=== PATIENT | male | born 1960 | race Caucasian/White ===

== ENCOUNTER 2016-11-15 04:36 | Inpatient (IN) | payer MEDICARE, MEDICAID ==
[2016-11-15 04:36] VITALS: BMI 19.3
--- NOTE | 2016-11-15 05:31 | ED PDOC ---
HPI: Psych/Substance Abuse Time Seen by Provider: 11/15/16 04:58 Chief Complaint (Nursing): Anxiety Chief Complaint (Provider): crisis eval History Per: Patient History/Exam Limitations: no limitations Onset/Duration Of Symptoms: Days Current Symptoms Are (Timing): Still Present Additional Complaint(s): 56yo male with PMHx including cocaine abuse, bipolar disorder presents to the ED for crisis eval. Patient was recently removed from [facility] due to persistent drug abuse. Patient states he has been non-compliant with his medications due to sense of feeling overwhelmed. Further reports feeling very preoccupied and anxious. Denies auditory or visual hallucinations. Last cocaine use was 3 days ago. Denies any other medical complaints including fever, cough, shortness of breath, n/v/d, chest pain. Past Medical History Reviewed: Historical Data, Nursing Documentation, Vital Signs Vital Signs: Last Vital Signs Temp 98.2 F 11/15/16 04:47 Pulse 83 11/15/16 04:47 Resp 18 11/15/16 04:47 BP 141/85 11/15/16 04:47 Pulse Ox 100 11/15/16 04:47 - Medical History PMH: Anxiety, Bipolar Disorder, Depression, Schizophrenia Denies: Diabetes, Hepatitis, HIV, HTN, Chronic Kidney Disease, Seizures, Sexually Transmitted Disease Other PMH: cocaine abuse - Surgical History Surgical History: Appendectomy - Family History Family History: States: No Known Family Hx - Social History Current smoker - smoking cessation education provided: Yes Alcohol: Occasional Drugs: Cocaine - Immunization History Hx Tetanus Toxoid Vaccination: No Hx Influenza Vaccination: No Hx Pneumococcal Vaccination: No - Home Medications Home Medications: Ambulatory Orders Medication Instructions Recorded Aripiprazole [Abilify] 20 mg PO DAILY #30 tablet 01/09/16 Benztropine [Cogentin] 1 mg PO DAILY #30 tab 01/09/16 buPROPion SR [Wellbutrin SR 150 MG] 150 mg PO DAILY #30 tab 01/09/16 Divalproex [Depakote DR] 500 mg PO BID 11/15/16 - Allergies Allergies/Adverse Reactions: Allergies Allergy/AdvReac Type Severity Reaction Status Date / Time wheat Allergy DIARRHEA Verified 02/26/16 14:38 Review of Systems ROS Statement: Except As Marked, All Systems Reviewed And Found Negative Constitutional: Negative for: Fever Cardiovascular: Negative for: Chest Pain Respiratory: Negative for: Cough, Shortness of Breath Gastrointestinal: Negative for: Nausea, Vomiting, Diarrhea Psych: Positive for: Anxiety, Other (preoccupied and overwhelmed, no auditory or visual hallucinations ) Physical Exam - Reviewed Nursing Documentation Reviewed: Yes Vital Signs Reviewed: Yes - Physical Exam Appears: Positive for: Well, No Acute Distress Head Exam: Positive for: ATRAUMATIC, NORMAL INSPECTION, NORMOCEPHALIC Skin: Positive for: Normal Color, Warm, Dry Eye Exam: Positive for: Normal appearance, EOMI, PERRL ENT: Positive for: Normal ENT Inspection Neck: Positive for: Normal, Painless ROM, Supple Cardiovascular/Chest: Positive for: Regular Rate, Rhythm. Negative for: Murmur , Tachycardia Respiratory: Positive for: Normal Breath Sounds. Negative for: Wheezing, Respiratory Distress Gastrointestinal/Abdominal: Positive for: Normal Exam, Soft. Negative for: Tenderness Back: Positive for: Normal Inspection Extremity: Positive for: Normal ROM. Negative for: Deformity, Swelling Neurologic/Psych: Positive for: Alert, Oriented. Negative for: Motor/Sensory Deficits - Laboratory Results Result Diagrams: 11/15/16 06:20 11/15/16 06:20 - ECG O2 Sat by Pulse Oximetry: 100 Pulse Ox Interpretation: Normal (RA) Medical Decision Making Medical Decision Makin: Impression: 56yo male w/ anxiety in setting of known bipolar disorder and cocaine abuse Plan: crisis eval drug screen reassess 0555: Patient evaluated by crisis and will be admitted for further stabilization and treatment. Dx: bipolar depressed fair Patient is medically cleared for psychiatric admission Scribe Attestation: Documented by Libia Topete acting as a scribe for Colby Jaime MD. Provider Scribe Attestation: All medical record entries made by the Scribe were at my direction and personally dictated by me. I have reviewed the chart and agree that the record accurately reflects my personal performance of the history, physical exam, medical decision making, and the department course for this patient. I have also personally directed, reviewed, and agree with the discharge instructions and disposition. Disposition - Clinical Impression Clinical Impression: Bipolar depression - Patient ED Disposition Is Patient to be Admitted: Yes - Disposition Disposition Time: 05:55 Condition: FAIR - Pt Status Changed To: Hospital Disposition Of: Inpatient - Admit Certification Admit to Inpatient:: After my assessment, the patient will require hospitalization for at least two midnights. This is because of the severity of symptoms shown, intensity of services needed, and/or the medical risk in this patient being treated as an outpatient.
[2016-11-15 06:18] LABS: RBC URINE < 1 /hpf (0-3); URINE BILIRUBIN NEGATIVE (NEGATIVE); URINE BLOOD NEGATIVE (NEGATIVE); URINE COLOR YELLOW (YELLOW); URINE GLUCOSE (UA) NEG (Normal); URINE KETONE NEGATIVE (NEGATIVE); URINE LEUKOCYTE ESTERASE NEG Leu/uL (Negative); URINE PROTEIN NEGATIVE (NEGATIVE); URINE UROBILINOGEN 0.2-1.0 mg/dL (0.2-1.0); WBC URINE < 1 /hpf (0-5)
[2016-11-15 06:24] LABS: BASO # 0.1 K/uL (0.0-0.2); BASO % 0.9 % (0.0-2.0); EOS # 0.3 K/uL (0.0-0.7); EOS % 3.7 % (0.0-4.0); LYMPH # 2.5 K/uL (1.0-4.3); LYMPH % 33.8 % (20.0-40.0); MEAN CELL VOLUME 85.8 fl (80.0-94.0); MEAN CORPUSCULAR HEMOGLOBIN 28.2 pg (27.0-31.0); MEAN CORPUSCULAR HGB CONC 32.9 g/dL (33.0-37.0); MEAN PLATELET VOLUME 8.2 fl (7.2-11.7); MONO # 0.6 K/uL (0.0-0.8); MONO % 7.6 % (0.0-10.0); RED CELL DISTRIBUTION WIDTH 13.2 % (11.5-14.5); WHITE BLOOD COUNT 7.4 K/uL (4.8-10.8)
[2016-11-15 06:49] LABS: ALB/GLOB RATIO 1.4 (1.0-2.1); ALCOHOL SERUM < 10 mg/dl (0-10); ALKALINE PHOSPHATASE 74 U/L (38-126); ALT/SGPT 34 U/L (21-72); AST/SGOT 24 U/L (17-59); BILIRUBIN,TOTAL 1.3 mg/dl (0.2-1.3); BLOOD UREA NITROGEN 11 mg/dl (9-20); CALCIUM 9.5 mg/dL (8.4-10.2); CARBON DIOXIDE 27 mmol/L (22-30); CHLORIDE 102 mmol/L (98-107); GFR AFRICAN-AMERICAN > 60; GLUCOSE,RANDOM 92 mg/dL (75-110); POTASSIUM 4.1 MMOL/L (3.6-5.0); SODIUM 141 mmol/l (132-148); TOTAL PROTEIN 7.5 G/DL (6.3-8.2)
--- NOTE | 2016-11-15 08:52 | CARD ---
APPROVED REPORT EKG Measurement Heart [id number] <Conclusion> Sinus bradycardia with short OH Minimal voltage criteria for LVH, may be normal variant Borderline ECG
--- NOTE | 2016-11-15 09:46 | RAD ---
HISTORY: admit COMPARISON: 01/03/2016 TECHNIQUE: Chest PA and lateral FINDINGS: LUNGS: No active pulmonary disease. PLEURA: No significant pleural effusion identified. No pneumothorax apparent. CARDIOVASCULAR: Normal. OSSEOUS STRUCTURES: Minor multilevel degenerative spondylosis of the thoracic spine. VISUALIZED UPPER ABDOMEN: Normal. OTHER FINDINGS: None. IMPRESSION: No active disease.
[2016-11-15] MEDS ORDERED: Magnesium Hydroxide Susp 30 ml UD PO PRN (11:57)
[2016-11-15] MEDS ORDERED: DiphenhydrAMINE 50 mg/ml Inj IM PRN (11:57)
[2016-11-15] MEDS ORDERED: Alum-Mag Hydrox-Simethicone Susp (30 mL) PO PRN (11:57)
[2016-11-15 12:36] LABS: CHOLESTEROL 139 mg/dL (0-199)
--- NOTE | 2016-11-15 12:55 | PCM.PSYCH ---
Initial Psychiatric Evaluation - Initial Psychiatric Evaluation Type of Admission: Voluntary Legal Status: Capacity Chief Complaint (in patient's own words): i am off my meds Patient's Reaction to Hospitalization: cooperative History of Present Illness and Precipitating Events: 56 yo male with history of mdd and cocaine dependence. he has been terminated from his program because of testing positive for cocaine. he has not had follow up treatment and has stopped taking his medications. he states his anxiety level has now gone "out of control" and reports he needs to go back on his medications. the final tipping point was receiving a letter for jury duty which made him feel that he would "be arrested if i don't go." he reports that his thoughts are racing, he cannot sleep, he has lost weight and that he has passive suicidal thoughts. denies psychotic symptoms. pt states he was sober from august after leaving his program until just recently. he does not want to use cocaine anymore. he is worried that he may lose his housing if it is found out he used cocaine. Current Medications: Active Medications Generic Name Dose Route Start Last Admin Trade Name Freq PRN Reason Stop Dose Admin Acetaminophen 650 mg 11/15/16 11:57 Tylenol 325mg Tab PO Q4 PRN Pain, moderate (4-7) Al Hydrox/Mg Hydrox/Simethicone 30 ml 11/15/16 11:57 Maalox Plus 30 Ml PO Q4 PRN Dyspepsia Benztropine Mesylate 1 mg 11/15/16 12:00 Cogentin PO DAILY ERIK Bupropion HCl 150 mg 11/15/16 12:00 Wellbutrin Sr 150 Mg PO DAILY ERIK Diphenhydramine HCl 50 mg 11/15/16 11:57 Benadryl IM Q6 PRN Extrapyramidal S/S Unable PO Diphenhydramine HCl 50 mg 11/15/16 11:57 Benadryl PO Q6 PRN Extrapyramidal Symptoms Divalproex Sodium 500 mg 11/15/16 17:00 Anastacio Cisneros(*Bid*) PO BID ERIK Haloperidol 5 mg 11/15/16 11:57 Haldol PO Q4 PRN Agitation Haloperidol Lactate 5 mg 11/15/16 11:57 Haldol IM Q4 PRN Agitation, Unable to Take PO Home Med 20 mg 11/15/16 12:00 Aripiprazole [Abilify] PO DAILY ERIK Lorazepam 2 mg 11/15/16 11:57 Ativan IM Q4 PRN Anxiety/Agitation,Unable PO Lorazepam 2 mg 11/15/16 11:57 Ativan PO Q4 PRN Anxiety/Agitation Magnesium Hydroxide 30 ml 11/15/16 11:57 Milk Of Magnesia PO HS PRN Constipation Past Psychiatric History - Past Psychiatric History Previous Treatment History: Inpatient Prior Psychiatric Treatment: was at [facility], [facility]: inpt at [facility] History of Abuse: denies History of ETOH/Drug Use: used crack cocaine once in recent months, denies use of alcohol or other substances. states he smokes a few cigarettes a day History of Family Illness: denies Pertinent Medical Hx (Current Medical&Sleep Prob, Allergies): Allergies Allergy/AdvReac Type Severity Reaction Status Date / Time wheat Allergy DIARRHEA Verified 02/26/16 14:38 Aripiprazole [Abilify] 20 mg PO DAILY #30 tablet 01/09/16 Benztropine [Cogentin] 1 mg PO DAILY #30 tab 01/09/16 buPROPion SR [Wellbutrin SR 150 MG] 150 mg PO DAILY #30 tab 01/09/16 Divalproex [Depakote DR] 500 mg PO BID 11/15/16 Review of Systems - Psychiatric Psychiatric: As Per HPI Mental Status Examination - Personal Presentation Personal Presentation: Looks stated age - Affect Affect: Constricted - Motor Activity Motor Activity: Calm - Reliability in Providing Information Reliability in Providing Information: Good - Speech Speech: Organized - Mood Mood: Depressed, Anxious - Formal Thought Process Formal Thought Process: No Impairment - Obsessions/Compulsions Obsessions: No Compulsions: No - Cognitive Functions Orientation: Person, Place, Situation, Time Sensorium: Alert Attention/Concentration: Attentive Abstract Thinking: Hardy Estimate of Intelligence: Average Judgement: Intact, as evidence by: Insight regarding need for hospitalization Memory: Recent intact, as evidence by: Ability to recall events of the day, Remote intact, as evidenced by: Abilit to recall sig. life events - Risk Risk: Suicidal (denies current thoughts), Diminished functioning - Strength & Assets Inventory Strength & Assets Inventory: Intelligence, Other DSM 5 DX - DSM 5 DSM 5 Diagnosis: major depression recurrent moderate panic disorder cocaine dependence - Recommended/Plan of Treatment Treatment Recommendations and Plan of Treatment: admit to [facility] for safety and observation gather collateral information provide supportive therapy adjust medications- will restart pt's home medications disposition planing- try to refer back to [facility] and php hospitalist consult Projected ELOS: 5-7 days Prognosis: fair - Smoking Cessation Smoking Cessation Initiated: No Reason for not providing: declines
[2016-11-15] MEDS: buPROPion SR 150 MG TABLET PO SCH (15:00)
[2016-11-15 16:31] VITALS: O2SAT 99
[2016-11-15] MEDS ORDERED: Divalproex 250 mg DR(BID formulation) PO SCH (17:00)
--- NOTE | 2016-11-15 19:59 | CP.PCM.HP ---
History of Present Illness - History of Present Illness History of Present Illness: 55 year old male with a history of Gluten intolerance/possibly celiac disease as per patient, polysubstance abuse ( cocaine, 3 days ago), depression, anxiety and Bipolar dx admitted to psychiatry for management of acute decompensation of his condition. Patient was recently removed from [facility] due to persistent drug abuse. Patient states he has been non-compliant with his medications due to sense of feeling overwhelmed. Further reports feeling very preoccupied and anxious. Denies auditory or visual hallucinations. Last cocaine use was 3 days ago Currently denies nausea, vomiting, diarrhea, hematochezia, hematemesis, fever, chills, chest pain, palpitations, shortness of breath, changes in exercise tolerance, focal deficits, parasthesias, blurry vision, syncope. Present on Admission - Present on Admission Any Indicators Present on Admission: No Review of Systems - Review of Systems Review of Systems: see hpi Past Patient History - Past Medical History & Family History Past Medical History?: Yes - Past Social History Alcohol: Occasional Drugs: Cocaine - CARDIAC Hx Cardiac Disorders: No Hx Hypertension: No - PULMONARY Hx Tuberculosis: No - NEUROLOGICAL HX Cerebrovascular Accident: No Hx Seizures: No - HEENT Hx HEENT Problems: No - RENAL Hx Chronic Kidney Disease: No - ENDOCRINE/METABOLIC Hx Endocrine Disorders: No - HEMATOLOGICAL/ONCOLOGICAL Hx Cancer: No Hx Human Immunodeficiency Virus (HIV): No - INTEGUMENTARY Hx Dermatological Problems: No - MUSCULOSKELETAL/RHEUMATOLOGICAL Hx Musculoskeletal Disorders: No - GASTROINTESTINAL Other/Comment: celiac disease - GENITOURINARY/GYNECOLOGICAL Hx Sexually Transmitted Disorders: No - PSYCHIATRIC Hx Anxiety: Yes Hx Depression: Yes Hx Substance Use: Yes - SURGICAL HISTORY Hx Appendectomy: Yes - ANESTHESIA Hx Anesthesia: Yes Hx Anesthesia Reactions: No Meds Allergies/Adverse Reactions: Allergies Allergy/AdvReac Type Severity Reaction Status Date / Time wheat Allergy DIARRHEA Verified 02/26/16 14:38 Physical Exam - Constitutional Appears: No Acute Distress - Head Exam Head Exam: ATRAUMATIC - Eye Exam Eye Exam: EOMI Pupil Exam: PERRL - ENT Exam ENT Exam: Mucous Membranes Moist - Respiratory Exam Respiratory Exam: Clear to Auscultation Bilateral. absent: Rales, Rhonchi - Cardiovascular Exam Cardiovascular Exam: +S1, +S2 - GI/Abdominal Exam GI & Abdominal Exam: Normal Bowel Sounds, Soft. absent: Tenderness - Extremities Exam Extremities exam: Positive for: pedal pulses present. Negative for: calf tenderness - Neurological Exam Neurological exam: Alert, Oriented x3 - Psychiatric Exam Psychiatric exam: Anxious, Depressed - Skin Skin Exam: Normal Color, Warm Results - Vital Signs Recent Vital Signs: Last Vital Signs Temp 97.3 F L 11/15/16 16:29 Pulse 55 L 11/15/16 16:29 Resp 18 11/15/16 16:29 BP 133/79 11/15/16 16:29 Pulse Ox 99 11/15/16 16:29 - Labs Result Diagrams: 11/15/16 06:20 11/15/16 06:20 Labs: Laboratory Results - last 24 hr 11/15/16 11/15/16 11/15/16 06:13 06:20 06:20 WBC 7.4 RBC 5.37 Hgb 15.1 Hct 46.0 MCV 85.8 MCH 28.2 MCHC 32.9 L RDW 13.2 Plt Count 223 MPV 8.2 Neut % (Auto) 54.0 Lymph % (Auto) 33.8 Cooper % (Auto) 7.6 Eos % (Auto) 3.7 Baso % (Auto) 0.9 Neut # 4.0 Lymph # 2.5 Cooper # 0.6 Eos # 0.3 Baso # 0.1 Sodium 141 Potassium 4.1 Chloride 102 Carbon Dioxide 27 Anion Gap 16 BUN 11 Creatinine 0.9 Est GFR ( Amer) > 60 Est GFR (Non-Af Amer) > 60 Random Glucose 92 Hemoglobin A1c Calcium 9.5 Total Bilirubin 1.3 AST 24 ALT 34 Alkaline Phosphatase 74 Total Protein 7.5 Albumin 4.3 Globulin 3.2 Albumin/Globulin Ratio 1.4 Triglycerides Cholesterol LDL Cholesterol Direct HDL Cholesterol Urine Color Yellow Urine Clarity Clear Urine pH 6.0 Ur Specific [place] 1.011 Urine Protein Negative Urine Glucose (UA) Neg Urine Ketones Negative Urine Blood Negative Urine Nitrate Negative Urine Bilirubin Negative Urine Urobilinogen 0.2-1.0 Ur Leukocyte Esterase Neg Urine RBC (Auto) < 1 Urine Microscopic WBC < 1 Alcohol, Quantitative < 10 11/15/16 11/15/16 12:03 12:03 WBC RBC Hgb Hct MCV MCH MCHC RDW Plt Count MPV Neut % (Auto) Lymph % (Auto) Cooper % (Auto) Eos % (Auto) Baso % (Auto) Neut # Lymph # Cooper # Eos # Baso # Sodium Potassium Chloride Carbon Dioxide Anion Gap BUN Creatinine Est GFR ( Amer) Est GFR (Non-Af Amer) Random Glucose Hemoglobin A1c 5.1 Calcium Total Bilirubin AST ALT Alkaline Phosphatase Total Protein Albumin Globulin Albumin/Globulin Ratio Triglycerides 85 Cholesterol 139 LDL Cholesterol Direct 87 HDL Cholesterol 31 Urine Color Urine Clarity Urine pH Ur Specific [place] Urine Protein Urine Glucose (UA) Urine Ketones Urine Blood Urine Nitrate Urine Bilirubin Urine Urobilinogen Ur Leukocyte Esterase Urine RBC (Auto) Urine Microscopic WBC Alcohol, Quantitative Assessment & Plan - Assessment and Plan (Free Text) Plan: 55 year old male with a history of Gluten intolerance/possibly celiac disease as per patient, polysubstance abuse ( cocaine, 3 days ago), depression, anxiety and Bipolar dx admitted to psychiatry for management of acute decompensation of his condition. Psych disorder and polysubstance abuse management as per psychiatry Gluten intolerance Gluten free diet PPx DVT - ambulate ad gracie
[2016-11-16 09:02] LABS: CHOLESTEROL 134 mg/dL (0-199)
[2016-11-16] MEDS: buPROPion SR 150 MG TABLET PO SCH (09:09)
[2016-11-16] MEDS: Divalproex 500 mg DR(BID formulation) PO SCH ×2 (09:09→17:03)
--- NOTE | 2016-11-16 09:47 | PCM.PYCHPN ---
Psychiatric Progress Note - Psychiatric Progress Note Patient seen today, length of contact: pt is seen and evaluated Patient Chief Complaint: pt is still feeling depressed and also angry for doing cocaine .pt is focussed on getting off cocaine .denies side effects to meds pt is doing better on abilify and wellbutrin DSM 5 Symptoms Update: major depresion Medication Change: No Medical Record Reviewed: Yes Mental Status Examination - Cognitive Function Orientation: Person, Place, Situation, Time Memory: Intact Attention: Poor Concentration: Poor Association: WNL Fund of Knowledge: WNL - Mood Mood: Depressed, Anxious - Affect Affect: Constricted - Formal Thought Process Formal Thought Process: No Impairment - Suicidal Ideation Suicidal Ideation: No - Homicidal Ideation Homicidal Ideation: No Goal/Treatment Plan - Goal/Treatment Plan Progress Toward Problem(s) and Goals/Treatment Plan: will continue the meds and adjust the meds and engage pt in therapy and groups.will refer pt for drugrehab
[2016-11-17 08:26] LABS: CHOLESTEROL 125 mg/dL (0-199)
[2016-11-17] MEDS: Divalproex 500 mg DR(BID formulation) PO SCH ×2 (08:45→18:15)
[2016-11-17] MEDS: buPROPion SR 150 MG TABLET PO SCH (08:45)
--- NOTE | 2016-11-17 15:26 | PCM.PYCHPN ---
Psychiatric Progress Note - Psychiatric Progress Note Patient seen today, length of contact: pt is seen and evaluated Patient Chief Complaint: pt is still feeling depressed and also angry for doing cocaine .pt is focussed on getting off cocaine .denies side effects to meds pt is doing better on abilify and wellbutrin pt is still worried about if placed in rehab as he does not want to go to rehab and rather go outpt DSM 5 Symptoms Update: major depression and cocaine dependence Medication Change: No Medical Record Reviewed: Yes Mental Status Examination - Cognitive Function Orientation: Person, Place, Situation, Time Memory: Intact Attention: Poor Concentration: Poor Association: WNL Fund of Knowledge: WNL - Mood Mood: Depressed, Anxious - Affect Affect: Constricted - Formal Thought Process Formal Thought Process: No Impairment - Suicidal Ideation Suicidal Ideation: No - Homicidal Ideation Homicidal Ideation: No Goal/Treatment Plan - Goal/Treatment Plan Progress Toward Problem(s) and Goals/Treatment Plan: will continue the meds and adjust the meds and engage pt in therapy and groups.will refer pt for drugrehab will check VPA level in am to adjust meds as needed.
[2016-11-18] MEDS: buPROPion SR 150 MG TABLET PO SCH (09:51)
[2016-11-18] MEDS: Divalproex 500 mg DR(BID formulation) PO SCH ×2 (09:51→16:54)
[2016-11-18 09:58] VITALS: RESP 18
--- NOTE | 2016-11-18 11:53 | PCM.PYCHPN ---
Psychiatric Progress Note - Psychiatric Progress Note Patient seen today, length of contact: discussed with team Patient Chief Complaint: i feel much better Problems Identified/Issues Discussed: pt worried about losing his housing. pt is denying suicidal thoughts currently. states he feels better now that he is on his medications. Medication Change: No Medical Record Reviewed: Yes Mental Status Examination - Cognitive Function Orientation: Person, Place, Situation, Time Memory: Intact Attention: WNL Concentration: WNL Association: WNL Fund of Knowledge: [facility] Decription of patient's judgement and insights: fair - Mood Mood: Depressed, Anxious - Affect Affect: Constricted - Speech Speech: Appropriate - Formal Thought Process Formal Thought Process: No Impairment - Suicidal Ideation Suicidal Ideation: No - Homicidal Ideation Homicidal Ideation: No Goal/Treatment Plan - Goal/Treatment Plan Need for Continued Stay: Remain at risks for inpatient hospitalization, Discharge may exacerbated symptoms Progress Toward Problem(s) and Goals/Treatment Plan: cocaine depenendence panic disorder, major depression continue current treatment referring to substance abuse treatment Estimated Date of D/C: 11/22/16
[2016-11-19] MEDS: Divalproex 500 mg DR(BID formulation) PO SCH ×2 (08:56→17:18)
[2016-11-19] MEDS: buPROPion SR 150 MG TABLET PO SCH (08:56)
--- NOTE | 2016-11-19 10:08 | PCM.PYCHPN ---
Psychiatric Progress Note - Psychiatric Progress Note Patient seen today, length of contact: discussed with team Patient Chief Complaint: i am doing better Problems Identified/Issues Discussed: pt states he is feeling better. no longer interested in inpatient treatment for his cocaine dependence. he is without aggression or agitation. pt denies suicidal thoughts. Medication Change: No Medical Record Reviewed: Yes Mental Status Examination - Cognitive Function Orientation: Person, Place, Situation, Time Memory: Intact Attention: WNL Concentration: WNL Association: WNL Fund of Knowledge: [facility] Decription of patient's judgement and insights: fair - Mood Mood: Depressed, Anxious - Affect Affect: Constricted - Speech Speech: Appropriate - Formal Thought Process Formal Thought Process: No Impairment Psychotic Thoughts and Behaviors: denies a/v hallucinations - Suicidal Ideation Suicidal Ideation: No - Homicidal Ideation Homicidal Ideation: No Goal/Treatment Plan - Goal/Treatment Plan Need for Continued Stay: Remain at risks for inpatient hospitalization, Discharge may exacerbated symptoms Progress Toward Problem(s) and Goals/Treatment Plan: cocaine depenendence panic disorder, major depression continue current treatment referring to substance abuse treatment- outpatient Estimated Date of D/C: 11/22/16
[2016-11-20] MEDS: Divalproex 500 mg DR(BID formulation) PO SCH (08:34)
[2016-11-20] MEDS: buPROPion SR 150 MG TABLET PO SCH (08:35)
[2016-11-20 08:58] VITALS: BP 121/86; PULSE 62; TEMP 96.5
--- NOTE | 2016-11-20 09:43 | PCM.PYCHDC ---
Mental Status Examination - Mental Status Examination Orientation: Person, Place, Situation, Time Memory: Intact Mood: Neutral Affect: Broad Speech: Appropriate Attention: WNL Concentration: WNL Association: WNL Fund of Knowledge: WNL Formal Thought Process: No Impairment Description of patient's judgement and insight: fair Psychotic Thoughts and Behaviors: denies a/v hallucinations Suicidal Ideation: No Current Homicidal Ideation?: No Plan: pt denies any suicidal or homicidal thoughts/plans or intent Discharge Summary - Discharge Note Reason for Hospitalization: pt ran out of meds after being terminated from program for cocaine use. Psychiatric History (includes Medical, Family, Personal Hx): history of bipolar disorder, cocaine dependence Laboratory Data: valproic acid level is 60.9 Consultations:: List each consultation separately and include: 1. Reason for request. 2. Findings. 3. Follow-up Consultations: seen by hospitalist Summary of Hospital Course include:: 1. Description of specific treatment plan utilized for patients during their course of treatmen. 2. Summarize the time- course for resolution of acute symptoms and/or regressed behaviors. 3. Describe issues identified and worked on during hospitalization. 4. Describe medication utilized. 5. Describe medical problems identified and treated. 6. Reassessment of suicide risk Summary of Hospital Course: 56 yo male with history of mdd and cocaine dependence. he has been terminated from his program because of testing positive for cocaine. he has not had follow up treatment and has stopped taking his medications. he states his anxiety level has now gone "out of control" and reports he needs to go back on his medications. the final tipping point was receiving a letter for jury duty which made him feel that he would "be arrested if i don't go." he reports that his thoughts are racing, he cannot sleep, he has lost weight and that he has passive suicidal thoughts. denies psychotic symptoms. pt states he was sober from august after leaving his program until just recently. he does not want to use cocaine anymore. he is worried that he may lose his housing if it is found out he used cocaine. hospital course: pt was admitted to [facility] and oriented to the unit. pt placed on routine safety protocols. pt was started back on his home medications. his old outpt program was consulted and would not take the pt back unless he was in an inpt rehab program. pt did not want to go to inpt rehab. he denied medication side effects he was socializing with peers and attending groups. he was denying any suicidal or homicidal thoughts at the time of discharge. he was agreeing to attend a [facility] program after discharge and was hoping the program would test his urine for cocaine as he felt this was helpful in keeping him sober. - Final Diagnosis (DSM 5) Condition upon Discharge: FAIR DSM 5: cocaine dependence bipolar disorder Disposition: HOME/ ROUTINE Follow-up Treatment Plan: follow up with aftercare appointments as directed take medications as prescribed do not use alcohol, tobacco or other illicit substances call 911 if any suicidal or homicidal thoughts Prescriptions/Medication Reconciliation: Aripiprazole [Abilify] 20 mg PO DAILY #30 tablet Benztropine [Cogentin] 1 mg PO DAILY #30 tab buPROPion SR [Wellbutrin SR 150 MG] 150 mg PO DAILY #30 tab Divalproex [Depakote DR(*BID*)] 500 mg PO BID #60 tcp - Smoking Cessation Smoking Cessation Medication prescribed: No Reason for not providing: declined - Antipsychotic Medications Pt discharged on 2 or more routine antipsychotic medications: No
== END 2016-11-20 12:25 | disposition home or self-care (01) | DRG 885 ==
LOC: H.ER 04:36 → H.ERHOLD 05:51 → H.PSYCH 08:31
PROVIDERS: ADMIT Psychiatry & Neurology Psychiatry; ATTEND Psychiatry & Neurology Psychiatry
PROC: GZHZZZZ Group Psychotherapy (ICD-10-PCS; principal; 2016-11-15)
PROC: GZ51ZZZ Individual Psychotherapy, Behavioral (ICD-10-PCS; 2016-11-15)
DX: F33.1 Major depressive disorder, recurrent, moderate (principal); F14.20 Cocaine dependence, uncomplicated; F31.30 Bipolar disorder, current episode depressed, mild or moderate severity, unspecified; Z91.14 Patient's other noncompliance with medication regimen; K90.41 Non-celiac gluten sensitivity; K90.0 Celiac disease; F41.0 Panic disorder [episodic paroxysmal anxiety]; Z90.49 Acquired absence of other specified parts of digestive tract; F17.200 Nicotine dependence, unspecified, uncomplicated

== ENCOUNTER 2017-04-17 11:25 | Inpatient (IN) | payer MEDICARE, MEDICAID ==
[2017-04-17 11:26] VITALS: BMI 19.3
[2017-04-17 11:32] VITALS: O2SAT 100
--- NOTE | 2017-04-17 11:57 | ED PDOC ---
HPI: Psych/Substance Abuse Time Seen by Provider: 04/17/17 11:50 Chief Complaint (Nursing): Psychiatric Evaluation Additional Complaint(s): Patient is a 57 y/o M with hx of schizophrenia and bipolar disorder, non- compliant with medication, with hx of polysubstance abuse, presenting with suicidal ideation. Patient denies plan. Denies homicidal ideation, visual or auditory hallucinations. He reports that he last used cocaine 10 hours ago. Denies somatic complaints. Denies fever, chills, chest pain, shortness of breath, Past Medical History Vital Signs: Last Vital Signs Temp 97.6 F 04/17/17 11:46 Pulse 52 L 04/17/17 11:46 Resp 14 04/17/17 11:46 BP 123/75 04/17/17 11:46 Pulse Ox 100 04/17/17 11:46 - Medical History PMH: Anxiety, Bipolar Disorder, Depression, Schizophrenia Denies: Diabetes, Hepatitis, HIV, HTN, Chronic Kidney Disease, Seizures, Sexually Transmitted Disease - Surgical History Surgical History: Appendectomy - Family History Family History: States: Unknown Family Hx - Immunization History Hx Tetanus Toxoid Vaccination: No Hx Influenza Vaccination: No Hx Pneumococcal Vaccination: No - Home Medications Home Medications: Ambulatory Orders Medication Instructions Recorded Aripiprazole [Abilify] 20 mg PO DAILY #30 tablet 11/20/16 Benztropine [Cogentin] 1 mg PO DAILY #30 tab 11/20/16 Divalproex [Depakote DR(*BID*)] 500 mg PO BID #60 tcp 11/20/16 buPROPion SR [Wellbutrin SR 150 MG] 150 mg PO DAILY #30 tab 11/20/16 - Allergies Allergies/Adverse Reactions: Allergies Allergy/AdvReac Type Severity Reaction Status Date / Time No Known Allergies Allergy Verified 04/17/17 15:44 Review of Systems Constitutional: Negative for: Fever, Chills Cardiovascular: Negative for: Chest Pain Respiratory: Negative for: Cough, Shortness of Breath, SOB with Exertion, Pleuritic Pain, Wheezing Gastrointestinal: Negative for: Nausea, Vomiting, Abdominal Pain, Diarrhea, Constipation Genitourinary Male: Negative for: Dysuria Skin: Negative for: Rash Neurological: Negative for: Weakness, Numbness, Altered Mental Status, Headache Psych: Positive for: Depression, Suicidal ideation. Negative for: Withdrawal Physical Exam - Reviewed Nursing Documentation Reviewed: Yes Vital Signs Reviewed: Yes - Physical Exam Appears: Positive for: Well, Non-toxic Head Exam: Positive for: ATRAUMATIC Eye Exam: Positive for: EOMI, Normal appearance, PERRL Neck: Positive for: Normal Cardiovascular/Chest: Positive for: Regular Rate, Rhythm Respiratory: Positive for: Normal Breath Sounds. Negative for: Rales, Rhonchi, Stridor, Wheezing Gastrointestinal/Abdominal: Positive for: Soft. Negative for: Tenderness, Distended Back: Positive for: Normal Inspection. Negative for: L CVA Tenderness, R CVA Tenderness Extremity: Positive for: Normal ROM Neurologic/Psych: Positive for: Alert, house sitter II-XII, Oriented, Gait (normal) - Laboratory Results Result Diagrams: 04/17/17 12:10 04/17/17 12:10 - ECG O2 Sat by Pulse Oximetry: 100 Medical Decision Making Medical Decision Making: Patient is a 57 y/o M presenting with suicidal ideation. On 1:1 monitoring for safety. Psych consult placed immediately after MD evaluation. Will medically clear 12:55PM EKG shows sinus bradycardia at 47bpm. Cxray negative. Labs grossly normal. P : ua and uds to medically cleared. On 1:1 monitoring 2:21PM Medically cleared pending psych 3:25PM Patient resting comfortably in NAD. Pending psych recommendations. On 1:1 monitoring 3:48PM Patient accepted by psych for admission ED OBSERVATION Date of observation admission: 04/17/17 Time of observation admission: 12:56 - Observation admission statement Patient is placed on observation because of need: for further pain management Disposition - Clinical Impression Clinical Impression: Schizophrenia - Disposition Disposition Time: 12:56 Condition: FAIR - Pt Status Changed To: Hospital Disposition Of: Inpatient - Admit Certification Admit to Inpatient:: After my assessment, the patient will require hospitalization for at least two midnights. This is because of the severity of symptoms shown, intensity of services needed, and/or the medical risk in this patient being treated as an outpatient.
[2017-04-17 12:26] LABS: BASO # 0.1 K/uL (0.0-0.2); EOS # 0.4 K/uL (0.0-0.7); EOS % 5.8 % (0.0-4.0); HEMATOCRIT 41.3 % (35.0-51.0); LYMPH # 2.1 K/uL (1.0-4.3); LYMPH % 31.9 % (20.0-40.0); MEAN CELL VOLUME 86.2 fl (80.0-94.0); MEAN CORPUSCULAR HEMOGLOBIN 28.9 pg (27.0-31.0); MEAN CORPUSCULAR HGB CONC 33.5 g/dL (33.0-37.0); MEAN PLATELET VOLUME 8.1 fl (7.2-11.7); MONO # 0.5 K/uL (0.0-0.8); MONO % 8.4 % (0.0-10.0); NEUT # 3.5 K/uL (1.8-7.0); NEUT % 52.9 % (50.0-75.0); NRBC % 0.1 % (0.0-0.0); RED CELL DISTRIBUTION WIDTH 13.3 % (11.5-14.5); WHITE BLOOD COUNT 6.6 K/uL (4.8-10.8)
[2017-04-17 12:35] LABS: ALB/GLOB RATIO 1.6 (1.0-2.1); ALCOHOL SERUM < 10 mg/dl (0-10); ALKALINE PHOSPHATASE 83 U/L (38-126); ALT/SGPT 34 U/L (21-72); AST/SGOT 23 U/L (17-59); BLOOD UREA NITROGEN 10 mg/dl (9-20); CALCIUM 9.5 mg/dL (8.4-10.2); CARBON DIOXIDE 28 mmol/L (22-30); CHLORIDE 104 mmol/L (98-107); GFR AFRICAN-AMERICAN > 60; GLUCOSE,RANDOM 81 mg/dL (75-110); POTASSIUM 3.8 MMOL/L (3.6-5.0); SODIUM 145 mmol/l (132-148); TOTAL PROTEIN 6.9 G/DL (6.3-8.2)
--- NOTE | 2017-04-17 12:53 | RAD ---
HISTORY: psych, med clearance COMPARISON: 11/15/2016 FINDINGS: LUNGS: No active pulmonary disease. PLEURA: No significant pleural effusion identified, no pneumothorax apparent. CARDIOVASCULAR: Normal. OSSEOUS STRUCTURES: No significant abnormalities. VISUALIZED UPPER ABDOMEN: Normal. OTHER FINDINGS: None. IMPRESSION: No active disease.
[2017-04-17 13:47] LABS: RBC URINE 1 /hpf (0-3); URINE BACTERIA RARE (<OCC); URINE BILIRUBIN NEGATIVE (NEGATIVE); URINE BLOOD NEGATIVE (NEGATIVE); URINE COLOR AMBER (YELLOW); URINE GLUCOSE (UA) NEG (Normal); URINE KETONE NEGATIVE (NEGATIVE); URINE LEUKOCYTE ESTERASE NEG Leu/uL (Negative); URINE PROTEIN NEGATIVE (NEGATIVE); WBC URINE 1 /hpf (0-5)
[2017-04-17] MEDS ORDERED: Alum-Mag Hydrox-Simethicone Susp (30 mL) PO PRN (17:49)
[2017-04-17] MEDS ORDERED: DiphenhydrAMINE 50 mg/ml Inj IM PRN (17:49)
[2017-04-17] MEDS ORDERED: Magnesium Hydroxide Susp 30 ml UD PO PRN (17:49)
--- NOTE | 2017-04-17 19:37 | CP.PCM.CON ---
History of Present Illness - History of Present Illness History of Present Illness: CC: Auditory/visual hallucinations after smoking crack cocaine 57M w/ crack cocaine (lastnight) admitted to psychiatry for management of acute decompensation of his condition. Pt was removed from [facility] about 5 months ago due to persistent drug use. Pt is requesting a detox program so that he may successfully enter [facility] and feels if he doesn't get into detox he will harm himself when discharged. He feels preoccupied, anxious, and is not sleeping well. Currently denies nausea, vomiting, diarrhea, hematochezia, hematemesis, fever, chills, chest pain, palpitations, shortness of breath, focal deficits, parasthesias, blurry vision, syncope. PMH: Bipolar, Schizophrenia, Depression, Substance Abuse, Gluten sensitivity PSH: Appendectomy ALL: NKDA Review of Systems - Review of Systems All systems: reviewed and no additional remarkable complaints except - Psychiatric Psychiatric: Abnormal Sleep Pattern, Auditory Hallucinations, Depression, Suicidal Ideation (Not currently, but lastnight), Visual Hallucinations Past Patient History - Past Medical History & Family History Past Medical History?: Yes - Past Social History Smoking Status: Light Smoker < 10 Cigarettes Daily - CARDIAC Hx Cardiac Disorders: No - PULMONARY Hx Respiratory Disorders: No - NEUROLOGICAL HX Cerebrovascular Accident: No Hx Seizures: No - HEENT Hx HEENT Problems: No - RENAL Hx Chronic Kidney Disease: No - ENDOCRINE/METABOLIC Hx Endocrine Disorders: No - HEMATOLOGICAL/ONCOLOGICAL Hx Cancer: No Hx Human Immunodeficiency Virus (HIV): No - INTEGUMENTARY Hx Dermatological Problems: No - MUSCULOSKELETAL/RHEUMATOLOGICAL Hx Musculoskeletal Disorders: No - GASTROINTESTINAL Other/Comment: celiac disease - GENITOURINARY/GYNECOLOGICAL Hx Sexually Transmitted Disorders: No - PSYCHIATRIC Hx Psychophysiologic Disorder: Yes - SURGICAL HISTORY Hx Appendectomy: Yes - ANESTHESIA Hx Anesthesia: Yes Hx Anesthesia Reactions: No Meds Allergies/Adverse Reactions: Allergies Allergy/AdvReac Type Severity Reaction Status Date / Time No Known Allergies Allergy Verified 04/17/17 15:44 - Medications Medications: Current Medications Acetaminophen (Tylenol 325mg Tab) 650 mg PO Q4 PRN PRN Reason: Pain, moderate (4-7) Al Hydrox/Mg Hydrox/Simethicone (Maalox Plus 30 Ml) 30 ml PO Q4 PRN PRN Reason: Dyspepsia Diphenhydramine HCl (Benadryl) 50 mg IM Q6 PRN PRN Reason: Extrapyramidal S/S Unable PO Diphenhydramine HCl (Benadryl) 50 mg PO Q6 PRN PRN Reason: Extrapyramidal Symptoms Haloperidol (Haldol) 5 mg PO Q4 PRN PRN Reason: Agitation Haloperidol Lactate (Haldol) 5 mg IM Q4 PRN PRN Reason: Agitation, Unable to Take PO Lorazepam (Ativan) 2 mg IM Q4 PRN PRN Reason: Anxiety/Agitation,Unable PO Lorazepam (Ativan) 2 mg PO Q4 PRN PRN Reason: Anxiety/Agitation Magnesium Hydroxide (Milk Of Magnesia) 30 ml PO HS PRN PRN Reason: Constipation Risperidone (Risperdal Tab) 2 mg PO HS ERIK Physical Exam - Constitutional Appears: Non-toxic, No Acute Distress, Older Than Stated Age - Head Exam Head Exam: ATRAUMATIC, NORMAL INSPECTION - Eye Exam Eye Exam: EOMI, PERRL - ENT Exam ENT Exam: Mucous Membranes Moist, Normal Exam - Neck Exam Neck exam: Positive for: Full Rom. Negative for: Lymphadenopathy - Respiratory Exam Respiratory Exam: Clear to Auscultation Bilateral, NORMAL BREATHING PATTERN. absent: Rales, Rhonchi, Wheezes - Cardiovascular Exam Cardiovascular Exam: REGULAR RHYTHM, +S1, +S2 - GI/Abdominal Exam GI & Abdominal Exam: Normal Bowel Sounds, Soft. absent: Tenderness - Extremities Exam Extremities exam: Positive for: full ROM, normal capillary refill, pedal pulses present - Neurological Exam Neurological exam: Alert, Normal Gait, Oriented x3 - Psychiatric Exam Psychiatric exam: Depressed - Skin Skin Exam: Normal Color, Warm Results - Vital Signs Recent Vital Signs: Last Vital Signs Temp 36.7 C 04/17/17 17:25 Pulse 52 L 04/17/17 17:25 Resp 14 04/17/17 17:25 BP 118/72 04/17/17 17:25 Pulse Ox 100 04/17/17 16:59 - Labs Result Diagrams: 04/17/17 12:10 04/17/17 12:10 Labs: Laboratory Results - last 24 hr 04/17/17 04/17/17 04/17/17 12:10 12:10 13:20 WBC 6.6 RBC 4.79 Hgb 13.8 Hct 41.3 MCV 86.2 MCH 28.9 MCHC 33.5 RDW 13.3 Plt Count 235 MPV 8.1 Neut % (Auto) 52.9 Lymph % (Auto) 31.9 [place] % (Auto) 8.4 Eos % (Auto) 5.8 H Baso % (Auto) 1.0 Neut # 3.5 Lymph # 2.1 [place] # 0.5 Eos # 0.4 Baso # 0.1 Sodium 145 Potassium 3.8 Chloride 104 Carbon Dioxide 28 Anion Gap 17 BUN 10 Creatinine 0.9 Est GFR ( Amer) > 60 Est GFR (Non-Af Amer) > 60 Random Glucose 81 Calcium 9.5 Total Bilirubin 1.0 AST 23 ALT 34 Alkaline Phosphatase 83 Total Protein 6.9 Albumin 4.2 Globulin 2.7 Albumin/Globulin Ratio 1.6 Urine Color Urine Clarity Urine pH Ur Specific [place] Urine Protein Urine Glucose (UA) Urine Ketones Urine Blood Urine Nitrate Urine Bilirubin Urine Urobilinogen Ur Leukocyte Esterase Urine RBC (Auto) Urine Microscopic WBC Urine Bacteria Urine Opiates Screen Negative Urine Methadone Screen Negative Ur Barbiturates Screen Negative Ur Phencyclidine Scrn Negative Ur Amphetamines Screen Negative U Benzodiazepines Scrn Negative U Oth Cocaine Metabols Positive H U Cannabinoids Screen Negative Alcohol, Quantitative < 10 04/17/17 13:25 WBC RBC Hgb Hct MCV MCH MCHC RDW Plt Count MPV Neut % (Auto) Lymph % (Auto) [place] % (Auto) Eos % (Auto) Baso % (Auto) Neut # Lymph # [place] # Eos # Baso # Sodium Potassium Chloride Carbon Dioxide Anion Gap BUN Creatinine Est GFR ( Amer) Est GFR (Non-Af Amer) Random Glucose Calcium Total Bilirubin AST ALT Alkaline Phosphatase Total Protein Albumin Globulin Albumin/Globulin Ratio Urine Color Talisha Urine Clarity Slighty-cloudy Urine pH 5.0 Ur Specific [place] 1.026 Urine Protein Negative Urine Glucose (UA) Neg Urine Ketones Negative Urine Blood Negative Urine Nitrate Negative Urine Bilirubin Negative Urine Urobilinogen 2.0 Ur Leukocyte Esterase Neg Urine RBC (Auto) 1 Urine Microscopic WBC 1 Urine Bacteria Rare Urine Opiates Screen Urine Methadone Screen Ur Barbiturates Screen Ur Phencyclidine Scrn Ur Amphetamines Screen U Benzodiazepines Scrn U Oth Cocaine Metabols U Cannabinoids Screen Alcohol, Quantitative Assessment & Plan - Assessment and Plan (Free Text) Assessment: 57M admitted for psychiatric decompensation. He has a history of gluten sensitivity, but is otherwise seeking a detox program and denies current suicidal ideation. 1. Psychiatric Decompensation and feels if he doesn't not get into a detox he will harm himself on discharge - Management as per psychiatry team 2. Gluten Sensitivity - Modify diet 3. VTE Prophylaxis - Ambulation - SCDs not allowed on the unit
--- NOTE | 2017-04-17 20:00 | PCM.BM ---
<Brittany Cook - Last Filed: 04/17/17 19:58> Treatment Plan Problems - Problems identified on initial assessmt Medication nonadherence Date Initiated: 04/17/17 Time Initiated: 20:00 Assessment reference: NA Status: Active Auditory Hallucinations Date Initiated: 04/17/17 Time Initiated: 20:00 Assessment reference: NA Status: Active Visual Hallucinations Date Initiated: 04/17/17 Time Initiated: 20:00 Assessment reference: NA Status: Active Social Isolation Date Initiated: 04/17/17 Time Initiated: 20:00 Assessment reference: NA Status: Active Treatment assets and liabiliti Patient Assests: self-reliant, ADL independent, negotiates basic needs, good past tx response, financial stabiity Patient Liabilities: live alone (medication nonadherence), poor support system, substance abuse - Milieu Protocol Maintain good personal hygiene: daily Encourage regular showers, daily Remind patient to perform daily oral care, daily Assist patient to perform ADL's Maintain personal safety: every shift Educate patient to report safety concerns to staff, every shift Monitor environment for contraband/sharps Medication safety: Monitor for expected outcome, potential side effects: every shift, Assess barriers to learning: every shift, Assess readiness for medication education: every shift <Leeanne Stoddard - Last Filed: 04/21/17 15:34> Treatment assets and liabiliti Patient Assests: adapts well, cooperative, motivated, self-reliant, ADL independent, physically healthy, negotiates basic needs, good past tx response, financial stabiity, cognitively intact Patient Liabilities: live alone, poor support system, substance abuse, unable to read/write Family Contact Family involvement: Patient does not wish Family/SO involvement Family contact: Family has been contacted by patient, Patient declines to allow family contact at present - Outside Agency Agency 1 Care involvment: Other Agency contact name: [facility] Agency contact number: [phone] - Goals for Treatment Patient goals for treatment: Patient to continue stabilization on 3NP through medication management and group/supportive therapy. Patient to be encouraged to attend groups regularly to promote self-esteem, coping skills, insight,sobriety and saftey. Patient to be provided with the appropriate level of aftercare. Discharge/Continuing Care - Education Needs Education Needs: Patient Medication, Patient Coping Skills, Patient Community resources, Patient Aftercare Safety Plan - Discharge Discharge Criteria: Tolerates medication w/o severe side effects, Free of Suicidal thoughts, Free of paranoid thoughts, Normal sleep pattern, Ability to care for self, No longer exhibiting s/s of withdrawal Discharge to:: Home - Treatment Team Participation Patient/Family/SO Statement: 04/21/17 15:34 Patient AOX3 with broad affect and fair eye contact. Patient significantly brighter than upon admission. Patient fairly groomed with fair ADLs. Speech: normal rate and tone. Thoughts are clear and connected. Patient visible on 3NP and observed socializing appropriately with select peers. Patient denies current AH/VH. Patient denies SI/HI and is able to contract for safety on 3NP. Patient reports sister has agreed to send patient a plane ticket to [place] upon discharge so patient can be removed from triggers in the [place] area. Patient reports his sister will help him get into an inpatient rehab upon arrival. Patient agreeable to [facility] referral in the event that move to [place] is delayed. Discussed with Family/SO: No Was Patient/Family/SO present at Treatment Team Meeting: No
[2017-04-18 08:59] LABS: T4 7.67 ug/dl (5.5-11.0)
[2017-04-18 09:12] LABS: THYROID STIMULATING HORMONE 0.6 mIU/ML (0.46-4.68)
--- NOTE | 2017-04-18 15:37 | PCM.PSYCH ---
Initial Psychiatric Evaluation - Initial Psychiatric Evaluation Type of Admission: Voluntary Chief Complaint (in patient's own words): I NEED HELP WITH MY COCAINE USE Patient's Reaction to Hospitalization: PATIENT REQUESTING HOSPITALIZATION FOR STABILIZATION History of Present Illness and Precipitating Events: PATIENT WITH PREVIOUS DIAGNOSIS OF SCHIZOPHRENIA AND COCAINE DEPENDENCE, PATIENT FOR PAST FIVE MONTHS HAS NOT BEEN COMPLIANT WITH MEDICATION OR FOLLOW UP , PATIENT RELAPSED ON COCAINE BECAME INCREASINGLY DEPRESSED STARTED TO HAVE PARANOID DELUSIONS THAT PEOPLE ARE AFTER HIM PATIENT ALSO EXPERIENCED SUICIDAL IDEATIONS WITHOUT A PLAN PATIENT CAME TO ER SEEKING HELP DENIED HOMCIDALIDEATIONS DENIED COMMAND HALLUCINATIONS Current Medications: Active Medications Generic Name Dose Route Start Last Admin Trade Name Freq PRN Reason Stop Dose Admin Acetaminophen 650 mg 04/17/17 17:49 Tylenol 325mg Tab PO Q4 PRN Pain, moderate (4-7) Al Hydrox/Mg Hydrox/Simethicone 30 ml 04/17/17 17:49 Maalox Plus 30 Ml PO Q4 PRN Dyspepsia Aripiprazole 10 mg 04/18/17 12:30 04/18/17 13:56 Abilify PO 10 mg DAILY ERIK Administration Diphenhydramine HCl 50 mg 04/17/17 17:49 Benadryl IM Q6 PRN Extrapyramidal S/S Unable PO Diphenhydramine HCl 50 mg 04/17/17 17:49 04/17/17 21:46 Benadryl PO 50 mg Q6 PRN Administration Extrapyramidal Symptoms Haloperidol 5 mg 04/17/17 17:49 Haldol PO Q4 PRN Agitation Haloperidol Lactate 5 mg 04/17/17 17:49 Haldol IM Q4 PRN Agitation, Unable to Take PO Lorazepam 2 mg 04/17/17 17:49 Ativan IM Q4 PRN Anxiety/Agitation,Unable PO Lorazepam 2 mg 04/17/17 17:49 Ativan PO Q4 PRN Anxiety/Agitation Magnesium Hydroxide 30 ml 04/17/17 17:49 Milk Of Magnesia PO HS PRN Constipation Past Psychiatric History - Past Psychiatric History Previous Treatment History: Inpatient Prior Psychiatric Treatment: PATIENT HAS UNSPECIFIED NUMBER OF HOSPITALIZATIONS History of Abuse: DENIED History of ETOH/Drug Use: HISTORY OF ALCOHOL AND COCAINE USE Pertinent Medical Hx (Current Medical&Sleep Prob, Allergies): Allergies Allergy/AdvReac Type Severity Reaction Status Date / Time No Known Allergies Allergy Verified 04/17/17 15:44 Aripiprazole [Abilify] 20 mg PO 04/17/17 Benztropine [Benztropine Mesylate] 1 mg PO 04/17/17 Bupropion HCl [Bupropion HCl Sr] 150 mg PO 04/17/17 Divalproex Sodium 500 mg PO 04/17/17 Mental Status Examination - Personal Presentation Additional comments: PATIENT UNKEMPT, DISHEVELED - Affect Affect: Depressed - Motor Activity Motor Activity: Calm - Reliability in Providing Information Reliability in Providing Information: Poor, due to altered mood - Speech Speech: Tangential - Mood Mood: Depressed, Anxious - Formal Thought Process Formal Thought Process: Paranoia - Hallucinations/Delusions Delusions: Persecution - Obsessions/Compulsions Compulsions: No - Cognitive Functions Orientation: Person, Place Judgement: Imparied, as evidence by: Poor judgement Additional comments: PATIENT UNABLE TO PERFORM TASK DUE TO PREOCCUPIRD THOUGHT PROCESS - Risk Risk: Diminished functioning - Strength & Assets Inventory Strength & Assets Inventory: Cooperative - Limitations Limitations: Living alone DSM 5 DX - DSM 5 DSM 5 Diagnosis: SCHIZOPHRENIA COCAINE USE DISORDER - Recommended/Plan of Treatment Treatment Recommendations and Plan of Treatment: PATIENT WILL BE STARTED ON ABILIFY 10MG DAILY WILL FOLLOW UP ON PSYCHOPHARMACOLOGICAL EFFECTS AND SIDE EFFECT PROFILE PATIENT WILL BE REFERRED TO [facility] ON DISCHARGE Prognosis: GUARDED - Smoking Cessation Smoking Cessation Initiated: No
--- NOTE | 2017-04-19 00:34 | CARD ---
APPROVED REPORT EKG Measurement Heart [id number] [id number] <Conclusion> Sinus bradycardia Otherwise normal ECG
--- NOTE | 2017-04-19 13:29 | PCM.PYCHPN ---
Psychiatric Progress Note - Psychiatric Progress Note Patient seen today, length of contact: pt seen and evaluated Patient Chief Complaint: Pt has remained internally preoccupied and paranoid and c/o racing thoughts.pt also feels depressed and claims he was taking well butrin which was helping him Problems Identified/Issues Discussed: admitted for psychotic thinking and noncompliance with meds DSM 5 Symptoms Update: schrizophrenia,paranoid type cocaine abuse Medication Change: Yes (increaese abilify to 15 mg daily) Medical Record Reviewed: Yes Mental Status Examination - Cognitive Function Orientation: Person, Place Memory: Intact Attention: Poor Concentration: Poor Association: WNL Fund of Knowledge: WNL - Mood Mood: Depressed, Anxious - Affect Affect: Flat, Depressed - Speech Speech: Appropriate - Formal Thought Process Formal Thought Process: Hallucinations, Paranoia - Homicidal Ideation Homicidal Ideation: No Goal/Treatment Plan - Goal/Treatment Plan Progress Toward Problem(s) and Goals/Treatment Plan: will increase abilify to 15 mg daily to stabilizethe mood and psychosis and will add wellbutrin SR 100 mg daily and cogentin 1 mg hs and engage pt in therapy and groups. disposition planning as pr dr amos
[2017-04-20 16:44] VITALS: RESP 18
--- NOTE | 2017-04-20 17:05 | PCM.PYCHPN ---
Psychiatric Progress Note - Psychiatric Progress Note Patient seen today, length of contact: pt seen and evaluated Patient Chief Complaint: Pt has remained internally preoccupied and paranoid and c/o racing thoughts.pt feels less depressed and is in better spirits. Problems Identified/Issues Discussed: admitted for psychotic thinking and noncompliance with meds Medication Change: Yes (increaese abilify to 15 mg daily) Medical Record Reviewed: Yes Mental Status Examination - Cognitive Function Orientation: Person, Place Memory: Intact Attention: Poor Concentration: Poor Association: WNL Fund of Knowledge: WNL - Mood Mood: Depressed, Anxious - Affect Affect: Flat, Depressed - Speech Speech: Appropriate - Formal Thought Process Formal Thought Process: Hallucinations, Paranoia - Homicidal Ideation Homicidal Ideation: No Goal/Treatment Plan - Goal/Treatment Plan Progress Toward Problem(s) and Goals/Treatment Plan: will increase abilify to 15 mg daily to stabilizethe mood and psychosis and will add wellbutrin SR 100 mg daily and cogentin 1 mg hs and engage pt in therapy and groups. disposition planning as pr dr amos
--- NOTE | 2017-04-21 14:38 | PCM.PYCHPN ---
Psychiatric Progress Note - Psychiatric Progress Note Patient seen today, length of contact: 30 minutes Patient Chief Complaint: [place]I will go [place] Problems Identified/Issues Discussed: cocaine use depression Medication Change: Yes (increaese abilify to 15 mg daily) Medical Record Reviewed: Yes Mental Status Examination - Cognitive Function Orientation: Person, Place Memory: Intact Attention: WNL Concentration: WNL Association: WNL Fund of Knowledge: WNL - Mood Mood: Depressed, Anxious, Neutral - Affect Affect: Flat - Speech Speech: Appropriate - Formal Thought Process Psychotic Thoughts and Behaviors: patient denied non elicited - Suicidal Ideation Suicidal Ideation: No - Homicidal Ideation Homicidal Ideation: No Goal/Treatment Plan - Goal/Treatment Plan Progress Toward Problem(s) and Goals/Treatment Plan: WILL FOLLOW UP ON PSYCHOPHARMACOLOGICAL EFFECTS AND SIDE EFFECT PROFILE PATIENT WILL BE REFERRED TO [facility] ON DISCHARGE patient on abilify 15 and wellbutrin Estimated Date of D/C: 04/22/17
[2017-04-22 10:50] VITALS: BP 125/75; PULSE 79; TEMP 96.6
--- NOTE | 2017-04-22 14:12 | PCM.PYCHDC ---
Mental Status Examination - Mental Status Examination Orientation: Person, Place, Situation, Time Memory: Intact Mood: Neutral Affect: Constricted Speech: Appropriate Attention: WNL Concentration: WNL Association: WNL Fund of Knowledge: WNL Formal Thought Process: Circumstantial Description of patient's judgement and insight: FAIR INSIGHT AND JUDGMENT Psychotic Thoughts and Behaviors: patient denied non elicited Suicidal Ideation: No Current Homicidal Ideation?: No Discharge Summary - Discharge Note Reason for Hospitalization: PATIENT REQUESTING HOSPITALIZATION FOR STABILIZATION FEELING DEPRESSED AFTER NON COMPLIANCE WITH MEDICATIONS AND RELAPSE ON COCAINE Psychiatric History (includes Medical, Family, Personal Hx): PT WITH PREVIOUS DIAGNOSIS OF SCHIZOPHRENIA AND COCAINE USE, MULTIPLE PREVI Consultations:: List each consultation separately and include: 1. Reason for request. 2. Findings. 3. Follow-up Summary of Hospital Course include:: 1. Description of specific treatment plan utilized for patients during their course of treatmen. 2. Summarize the time- course for resolution of acute symptoms and/or regressed behaviors. 3. Describe issues identified and worked on during hospitalization. 4. Describe medication utilized. 5. Describe medical problems identified and treated. 6. Reassessment of suicide risk Summary of Hospital Course: PATIENT WITH PREVIOUS DIAGNOSIS OF SCHIZOPHRENIA AND COCAINE DEPENDENCE, PATIENT FOR PAST FIVE MONTHS HAS NOT BEEN COMPLIANT WITH MEDICATION OR FOLLOW UP , PATIENT RELAPSED ON COCAINE BECAME INCREASINGLY DEPRESSED STARTED TO HAVE PARANOID DELUSIONS THAT PEOPLE ARE AFTER HIM PATIENT ALSO EXPERIENCED SUICIDAL IDEATIONS WITHOUT A PLAN PATIENT CAME TO ER SEEKING HELP DENIED HOMCIDALIDEATIONS DENIED COMMAND HALLUCINATIONS PATIENT WAS STARTED ON ABILIFY AND WELLBUTRIN, SHOWED GOOD RESPONSE NO REPORTED SIDE EFFECTS PT WAS COOPERATIVE ATTENDED GROUPS, COMPLIANT WITH MEDICATIONS ON DISCHARGE PT DENIED SUICIDAL OR HOMICIDAL IDEATIONS DENIED PERCEPTUAL DISTURBANCES WAS STABLE ON DISCHARGE - Diagnosis (1) Cocaine use Current Visit: Yes Status: Acute - Final Diagnosis (DSM 5) Condition upon Discharge: FAIR Disposition: HOME/ ROUTINE Follow-up Treatment Plan: WILL FOLLOW UP WITH [employer] [facility] Prescriptions/Medication Reconciliation: ARIPiprazole [Abilify] 15 mg PO DAILY 30 Days #30 tab buPROPion SR [Wellbutrin] 100 mg PO DAILY 30 Days #30 tab - Smoking Cessation Smoking Cessation Medication prescribed: Yes - Antipsychotic Medications Pt discharged on 2 or more routine antipsychotic medications: No
== END 2017-04-22 12:00 | disposition home or self-care (01) | DRG 897 ==
LOC: H.ER 11:25 → H.EROBSV 12:56 → OBSVTOIN 15:41 → H.ERHOLD 17:02 → H.PSYCH 17:47
PROVIDERS: ADMIT Psychiatry & Neurology Psychiatry; ATTEND Psychiatry & Neurology Psychiatry
PROC: GZHZZZZ Group Psychotherapy (ICD-10-PCS; principal; 2017-04-17)
DX: F14.90 Cocaine use, unspecified, uncomplicated (principal); R45.851 Suicidal ideations; K90.41 Non-celiac gluten sensitivity; F20.9 Schizophrenia, unspecified; Z91.14 Patient's other noncompliance with medication regimen; Z91.19 Patient's noncompliance with other medical treatment and regimen; R00.1 Bradycardia, unspecified

== ENCOUNTER 2017-07-23 16:26 | Emergency (ER) | payer MEDICARE, MEDICAID ==
[2017-07-23 16:26] VITALS: BMI 19.3
[2017-07-23 16:32] VITALS: BP 146/82; PULSE 63; RESP 16; TEMP 98; O2SAT 100
--- NOTE | 2017-07-23 17:14 | ED PDOC ---
HPI: Psych/Substance Abuse Time Seen by Provider: 07/23/17 16:52 Chief Complaint (Nursing): Psychiatric Evaluation Chief Complaint (Provider): Hearing voices History Per: Patient Onset/Duration Of Symptoms: Days (1 week) Additional Complaint(s): Pt. with hearing voices saying to end it. Also seeing things. Denies active suicidal action or homicidal thoughts. Was at the clinic today for it and sent to the ER. Pt. with no alcohol or drugs. Denies chest pain, dyspnea, weakness , headaches, numbness. Past Medical History Reviewed: Historical Data, Nursing Documentation Vital Signs: Last Vital Signs Temp 98.0 F 07/23/17 16:29 Pulse 63 07/23/17 16:29 Resp 16 07/23/17 16:29 BP 146/82 07/23/17 16:29 Pulse Ox 100 07/23/17 16:29 - Medical History PMH: Anxiety, Bipolar Disorder, Depression, Schizophrenia Denies: Diabetes, Hepatitis, HIV, HTN, Chronic Kidney Disease, Seizures, Sexually Transmitted Disease - Surgical History Surgical History: Appendectomy - Family History Family History: States: Unknown Family Hx - Social History Current smoker - smoking cessation education provided: No Alcohol: None Drugs: Denies - Immunization History Hx Tetanus Toxoid Vaccination: No Hx Influenza Vaccination: No Hx Pneumococcal Vaccination: No - Home Medications Home Medications: Ambulatory Orders Medication Instructions Recorded ARIPiprazole [Abilify] 15 mg PO DAILY 30 Days #30 tab 04/22/17 Benztropine [Cogentin] 1 mg PO HS tab 04/22/17 buPROPion SR [Wellbutrin] 100 mg PO DAILY 30 Days #30 tab 04/22/17 Aripiprazole [Abilify] 20 mg PO DAILY 5 Days tablet 07/23/17 Benztropine [Cogentin] 1 mg PO DAILY 5 Days tab 07/23/17 Bupropion HCl [Bupropion HCl Sr] 150 mg PO DAILY 5 Days tab.er.12h 07/23/17 Divalproex Sodium [Divalproex 500 mg PO DAILY 5 Days tab.er.24h 07/23/17 Sodium ER] - Allergies Allergies/Adverse Reactions: Allergies Allergy/AdvReac Type Severity Reaction Status Date / Time gluten Allergy DIARRHEA Verified 07/23/17 16:29 Review of Systems ROS Statement: Except As Marked, All Systems Reviewed And Found Negative Psych: Positive for: Psychosis Physical Exam - Reviewed Nursing Documentation Reviewed: Yes Vital Signs Reviewed: Yes - Physical Exam Appears: Positive for: Non-toxic, No Acute Distress Head Exam: Positive for: ATRAUMATIC, NORMAL INSPECTION, NORMOCEPHALIC Skin: Positive for: Normal Color, Warm, DRY Eye Exam: Positive for: EOMI, Normal appearance, PERRL ENT: Positive for: Normal ENT Inspection Neck: Positive for: Normal, Painless ROM Cardiovascular/Chest: Positive for: Regular Rate, Rhythm Respiratory: Positive for: CNT, Normal Breath Sounds Gastrointestinal/Abdominal: Positive for: Normal Exam, Bowel Sounds, Soft. Negative for: Tenderness Back: Positive for: Normal Inspection. Negative for: L CVA Tenderness, R CVA Tenderness Extremity: Positive for: Normal ROM. Negative for: Tenderness, Pedal Edema Neurologic/Psych: Positive for: Alert, systems architect II-XII, Oriented. Negative for: Motor/Sensory Deficits, Facial Droop - Laboratory Results Result Diagrams: 07/23/17 18:00 07/23/17 18:00 Interpretation Of Abn Labs: no acute - ECG O2 Sat by Pulse Oximetry: 100 Pulse Ox Interpretation: Normal - Progress ED Course And Treament: 2009: Stable. AAOx3. Pain free. Tolerated PO. Fu with pcp. Crisis saw pt. Does not meet criteria for admit. Wants Abilify, Benztropine, Buproprion, Divalproex on dc. Has appt 07/30. Disposition - Clinical Impression Clinical Impression: Schizophrenia - Patient ED Disposition Is Patient to be Admitted: No Counseled Patient/Family Regarding: Studies Performed, Diagnosis, Need For Followup, Rx Given - Disposition Referrals: [facility] [Outside] - 07/24/17 Disposition: Routine/Home Disposition Time: 20:10 Condition: STABLE Additional Instructions: Return if not better in 3 days. Prescriptions: Aripiprazole [Abilify] 20 mg PO DAILY 5 Days tablet Benztropine [Cogentin] 1 mg PO DAILY 5 Days tab Bupropion HCl [Bupropion HCl Sr] 150 mg PO DAILY 5 Days tab.er.12h Divalproex Sodium [Divalproex Sodium ER] 500 mg PO DAILY 5 Days tab.er.24h Instructions: Schizophrenia (ED) Forms: [employer] (Faroese)
[2017-07-23 18:23] LABS: BASO # 0.1 K/uL (0.0-0.2); BASO % 0.9 % (0.0-2.0); EOS # 0.1 K/uL (0.0-0.7); EOS % 1.6 % (0.0-4.0); HEMOGLOBIN 14.1 g/dL (12.0-18.0); LYMPH # 2.6 K/uL (1.0-4.3); LYMPH % 35.7 % (20.0-40.0); MEAN CORPUSCULAR HEMOGLOBIN 27.7 pg (27.0-31.0); MEAN CORPUSCULAR HGB CONC 32.1 g/dL (33.0-37.0); MEAN PLATELET VOLUME 8.1 fl (7.2-11.7); MONO # 0.5 K/uL (0.0-0.8); MONO % 7.1 % (0.0-10.0); NEUT % 54.7 % (50.0-75.0); NRBC % 0.2 % (0.0-0.0); RBC 5.09 Mil/uL (4.40-5.90); RED CELL DISTRIBUTION WIDTH 13.2 % (11.5-14.5); WHITE BLOOD COUNT 7.4 K/uL (4.8-10.8)
[2017-07-23 18:49] LABS: BLOOD UREA NITROGEN 11 mg/dl (9-20); CALCIUM 9.2 mg/dL (8.4-10.2); GFR AFRICAN-AMERICAN > 60; GFR NON-AFRICAN AMERICAN > 60
[2017-07-23 18:53] LABS: BARBITURATES, UR NEGATIVE (NEGATIVE); BENZODIAZEPINES, UR NEGATIVE (NEGATIVE); OPIATES, UR NEGATIVE (NEGATIVE); PHENCYCLIDINE, UR NEGATIVE (NEGATIVE)
== END 2017-07-23 20:23 | disposition home or self-care (01) ==
LOC: H.ER 16:26
DX: F20.9 Schizophrenia, unspecified (principal); F31.9 Bipolar disorder, unspecified; F41.9 Anxiety disorder, unspecified
CPT/HCPCS: 80048; 85025; 99283; G0480

== ENCOUNTER 2017-12-19 05:14 | Emergency (ER) | payer MEDICARE, MEDICAID ==
[2017-12-19 05:14] VITALS: BMI 20.5
--- NOTE | 2017-12-19 05:39 | ED PDOC ---
HPI: Headache Time Seen by Provider: 12/19/17 05:20 Chief Complaint (Nursing): Headache Chief Complaint (Provider): Headache History Per: Patient Onset/Duration Of Symptoms: Days, Waxing/Waning Current Symptoms Are (Timing): Still Present Associated Symptoms: denies: Vomiting Additional History Per: Patient Additional Complaint(s): Catalino Euceda is a 57 year old male with a past medical history of depression, bipolar disorder, substance abuse, and schizophrenia, who is presenting to the ED for evaluation of intermittent headaches, onset several months ago. Patient reports a waxing and waning headache to the back of the head that worsened in the last two days. not thunderclap headache. He denies any fever, vomiting, weakness, numbness, or change in behavior. Patient offers no other medical complaints at this time. PMD: none provided Past Medical History Reviewed: Historical Data, Nursing Documentation, Vital Signs Vital Signs: Last Vital Signs Temp 98 F 12/19/17 05:30 Pulse 67 12/19/17 05:30 Resp 18 12/19/17 05:30 BP 111/66 12/19/17 05:30 Pulse Ox 99 12/19/17 05:30 - Medical History PMH: Anxiety, Bipolar Disorder, Depression, Schizophrenia Denies: Diabetes, Hepatitis, HIV, HTN, Chronic Kidney Disease, Seizures, Sexually Transmitted Disease - Surgical History Surgical History: Appendectomy - Family History Family History: States: Other Other Family History: Celiac disease - Social History Current smoker - smoking cessation education provided: Yes Alcohol: None Drugs: Other (sometimes) - Immunization History Hx Tetanus Toxoid Vaccination: No Hx Influenza Vaccination: No Hx Pneumococcal Vaccination: No - Home Medications Home Medications: Ambulatory Orders Medication Instructions Recorded ARIPiprazole [Abilify] 15 mg PO DAILY 30 Days #30 tab 04/22/17 Benztropine [Cogentin] 1 mg PO HS tab 04/22/17 Benztropine [Cogentin] 1 mg PO DAILY 5 Days tab 07/23/17 Bupropion HCl [Bupropion HCl Sr] 150 mg PO DAILY 5 Days tab.er.12h 07/23/17 Divalproex Sodium [Divalproex 500 mg PO DAILY 5 Days tab.er.24h 07/23/17 Sodium ER] Benzonatate [Tessalon Perles] 100 mg PO TID #30 sgl 12/07/17 Acetaminophen/Butalbital/Caf 1 tab PO TID PRN #20 tab 12/21/17 [Fioricet] Ibuprofen [Motrin] 600 mg PO Q8 #30 tab 12/21/17 - Allergies Allergies/Adverse Reactions: Allergies Allergy/AdvReac Type Severity Reaction Status Date / Time gluten Allergy DIARRHEA Verified 12/21/17 11:05 Review of Systems ROS Statement: Except As Marked, All Systems Reviewed And Found Negative Constitutional: Negative for: Fever Gastrointestinal: Negative for: Vomiting Neurological: Positive for: Headache. Negative for: Weakness, Numbness Psych: Negative for: Other (change in behavior) Physical Exam - Reviewed Nursing Documentation Reviewed: Yes Vital Signs Reviewed: Yes - Physical Exam Appears: Positive for: Non-toxic, No Acute Distress, Uncomfortable Head Exam: Positive for: ATRAUMATIC, NORMAL INSPECTION, NORMOCEPHALIC Skin: Positive for: Normal Color, Warm, DRY Eye Exam: Positive for: EOMI, Normal appearance, PERRL ENT: Positive for: Normal ENT Inspection Neck: Positive for: Normal, Painless ROM, Supple Cardiovascular/Chest: Positive for: Regular Rate, Rhythm. Negative for: Murmur Respiratory: Positive for: Normal Breath Sounds. Negative for: Respiratory Distress Gastrointestinal/Abdominal: Positive for: Normal Exam, Soft. Negative for: Tenderness Back: Positive for: Normal Inspection. Negative for: L CVA Tenderness, R CVA Tenderness, Vertebral Tenderness Extremity: Positive for: Normal ROM. Negative for: Pedal Edema, Deformity, Swelling Neurologic/Psych: Positive for: Alert, Oriented. Negative for: Motor/Sensory Deficits - Laboratory Results Result Diagrams: 12/19/17 05:45 12/19/17 05:45 - ECG O2 Sat by Pulse Oximetry: 99 (RA) Pulse Ox Interpretation: Normal Medical Decision Making Medical Decision Making: Time: 5:33 Plan: headahce, not concerning as is progressive. not thunderclap. pt appears comfortable. no nuchal rigidity. no concern for meningitis. --CT Head --CMP --CBC --Toradol 30 mg IV 7:00 Patient will be signed out to Dr. Chatterjee pending CT. Scribe Attestation: Documented by, Nica Quezada acting as a scribe for Jason Cuellar MD. Provider Scribe Attestation: All medical record entries made by the Scribe were at my direction and personally dictated by me. I have reviewed the chart and agree that the record accurately reflects my personal performance of the history, physical exam, medical decision making, and the department course for this patient. I have also personally directed, reviewed, and agree with the discharge instructions and disposition. Disposition - Clinical Impression Clinical Impression: Chronic headache disorder - Patient ED Disposition Is Patient to be Admitted: Transfer of Care - Disposition Referrals: [facility] [Outside] - 12/22/17 Disposition: Transfer of Care Disposition Time: 07:00 Condition: STABLE Additional Instructions: Return if not better in 3 days. Instructions: Headache, Adult (DC) Patient Signed Over To: Indra Chatterjee
[2017-12-19 05:54] LABS: BASO # 0.1 K/uL (0.0-0.2); BASO % 1.1 % (0.0-2.0); EOS # 0.2 K/uL (0.0-0.7); EOS % 1.8 % (0.0-4.0); HEMOGLOBIN 12.9 g/dL (12.0-18.0); LYMPH # 2.6 K/uL (1.0-4.3); LYMPH % 28.9 % (20.0-40.0); MEAN CELL VOLUME 85.9 fl (80.0-94.0); MEAN CORPUSCULAR HEMOGLOBIN 28.9 pg (27.0-31.0); MEAN CORPUSCULAR HGB CONC 33.6 g/dL (33.0-37.0); MEAN PLATELET VOLUME 7.9 fl (7.2-11.7); MONO # 0.7 K/uL (0.0-0.8); MONO % 8.1 % (0.0-10.0); NEUT # 5.5 K/uL (1.8-7.0); NEUT % 60.1 % (50.0-75.0); RBC 4.48 Mil/uL (4.40-5.90); RED CELL DISTRIBUTION WIDTH 13.5 % (11.5-14.5); WHITE BLOOD COUNT 9.1 K/uL (4.8-10.8)
[2017-12-19 06:12] LABS: ALB/GLOB RATIO 1.2 (1.0-2.1); ALBUMIN 3.5 g/dL (3.5-5.0); ALT/SGPT 30 U/L (21-72); AST/SGOT 26 U/L (17-59); BLOOD UREA NITROGEN 15 mg/dl (9-20); CALCIUM 8.8 mg/dL (8.4-10.2); GFR AFRICAN-AMERICAN > 60; GFR NON-AFRICAN AMERICAN > 60
--- NOTE | 2017-12-19 07:31 | CT ---
EXAM: CT Head Without Intravenous Contrast EXAM DATE/TIME: 12/19/2017 5:33 AM CLINICAL HISTORY: 57 years old, male; Pain; Headache TECHNIQUE: Axial computed tomography images of the head/brain without intravenous contrast. All CT scans at this facility use one or more dose reduction techniques, viz.: automated exposure control; ma/kV adjustment per patient size (including targeted exams where dose is matched to indication; i.e. head); or iterative reconstruction technique. Coronal and sagittal reformatted images were created and reviewed. COMPARISON: CT - HEAD W/O CONTRAST 2015-08-29 09:33 FINDINGS: There is mild atrophy and mild chronic small vessel ischemic disease similar to prior. No intracranial hemorrhage. No intracranial edema. No evidence of infarct. No significant fluid in the sinuses and mastoid air cells. Patient motion. IMPRESSION: No acute findings.
[2017-12-19 07:44] VITALS: BP 122/79; PULSE 75; RESP 16; TEMP 98; O2SAT 99
--- NOTE | 2017-12-19 07:44 | ED PDOC ---
- Laboratory Results Result Diagrams: 12/19/17 05:45 12/19/17 05:45 Interpretation Of Abn Labs: no acute - ECG O2 Sat by Pulse Oximetry: 99 (RA) Pulse Ox Interpretation: Normal - CT Scan/US ct Other Rad Studies (CT/US): Read By Radiologist Other Rad Interpretation: no acute - Progress ED Course And Treament: 700: Stable. AAOx3. Pain free. Took over care from Dr. Cuellar. Pt. with headaches for months. Resting. 745: No acute findings. Chronic pain. Fu with pcp. Tolerated po. Disposition Counseled Patient/Family Regarding: Studies Performed, Diagnosis, Need For Followup - Clinical Impression Clinical Impression: Chronic headache disorder - POA Present On Arrival: None - Disposition Referrals: [facility] [Outside] - 12/22/17 Disposition: Routine/Home Disposition Time: 07:44 Condition: STABLE Additional Instructions: Return if not better in 3 days. Instructions: Headache, Adult (DC)
== END 2017-12-19 08:29 | disposition home or self-care (01) ==
LOC: H.ER 05:14
DX: R51 Headache (principal); G89.29 Other chronic pain; F17.200 Nicotine dependence, unspecified, uncomplicated; F20.9 Schizophrenia, unspecified; F31.9 Bipolar disorder, unspecified; F41.9 Anxiety disorder, unspecified
CPT/HCPCS: 70450; 80053; 85025; 96374; 99285; J1885

== ENCOUNTER 2018-12-10 16:13 | Inpatient (IN) | payer MEDICARE, MEDICAID ==
[2018-12-10 16:14] VITALS: BMI 20.5
[2018-12-10 17:56] LABS: BASO % 0.6 % (0.0-2.0); EOS # 0.1 K/uL (0.0-0.7); EOS % 1.4 % (0.0-4.0); HEMOGLOBIN 13.9 g/dL (12.0-18.0); LYMPH # 2.1 K/uL (1.0-4.3); LYMPH % 29.6 % (20.0-40.0); MEAN CORPUSCULAR HEMOGLOBIN 30.4 pg (27.0-31.0); MEAN CORPUSCULAR HGB CONC 34.2 g/dL (33.0-37.0); MEAN PLATELET VOLUME 7.7 fl (7.2-11.7); MONO # 0.4 K/uL (0.0-0.8); MONO % 6.2 % (0.0-10.0); NEUT # 4.5 K/uL (1.8-7.0); NEUT % 62.2 % (50.0-75.0); NRBC % 0.1 % (0.0-0.0); RBC 4.58 Mil/uL (4.40-5.90); RED CELL DISTRIBUTION WIDTH 14.6 % (11.5-14.5); WHITE BLOOD COUNT 7.3 K/uL (4.8-10.8)
[2018-12-10 18:11] LABS: URINE BILIRUBIN NEGATIVE (NEGATIVE); URINE BLOOD NEGATIVE (NEGATIVE); URINE CLARITY SLIGHTY-CLOUDY (Clear); URINE COLOR YELLOW (YELLOW); URINE GLUCOSE (UA) NEG (NEGATIVE); URINE LEUKOCYTE ESTERASE NEG Leu/uL (Negative); URINE PROTEIN NEGATIVE (NEGATIVE); URINE UROBILINOGEN 0.2-1.0 mg/dL (0.2-1.0)
[2018-12-10 18:15] LABS: ALB/GLOB RATIO 1.4 (1.0-2.1); ALBUMIN 4.2 g/dL (3.5-5.0); ALT/SGPT 35 U/L (21-72); AST/SGOT 25 U/L (17-59); BLOOD UREA NITROGEN 20 mg/dl (9-20); CALCIUM 8.6 mg/dL (8.4-10.2); GFR NON-AFRICAN AMERICAN > 60
[2018-12-10 18:28] LABS: BARBITURATES, UR NEGATIVE (NEGATIVE); BENZODIAZEPINES, UR POSITIVE (NEGATIVE); OPIATES, UR NEGATIVE (NEGATIVE); PHENCYCLIDINE, UR NEGATIVE (NEGATIVE)
--- NOTE | 2018-12-10 18:33 | ED PDOC ---
HPI: Psych/Substance Abuse Time Seen by Provider: 12/10/18 16:42 Chief Complaint (Nursing): Psychiatric Evaluation Chief Complaint (Provider): suicidal ideations Additional Complaint(s): 58 y/o M with hx of bipolar d/o, prior hx of crack/cocaine abuse, celiac disease, schizophrenia, depression, restless leg syndrome who presents for psych evaluation for depression with suicidal ideations. Pt states that he has been off of his depression meds for the past couple of months due to being dropped from his psychiatrist after missing several appointments. He has been feeling more depressed and has been keeping a knife next to him but states that he does not want to painfully and would like to be prescribed a medication that would put him to sleep forever. Pt also c/o B/L hip pain since his restless leg syndrome began. He took first dose of Mirapex yesterday and was able to sleep last night. He had an episode of anxiety/crying today after being told that his psychiatrist would be changed in the new program that he went to today. Denies auditory/visual hallucinations or HI. Denies C/P, palpitations, SOB. Past Medical History Reviewed: Historical Data, Nursing Documentation, Vital Signs Vital Signs: Last Vital Signs Temp 97.8 F 12/10/18 16:15 Pulse 68 12/10/18 16:15 Resp 18 12/10/18 16:15 BP 149/90 12/10/18 16:15 Pulse Ox 99 12/10/18 16:15 Primary Care Provider: Non [facility] Provider, - Medical History PMH: Anxiety, Bipolar Disorder, Depression, Schizophrenia Denies: Diabetes, Hepatitis, HIV, HTN, Chronic Kidney Disease, Seizures, Sexually Transmitted Disease - Surgical History Surgical History: Appendectomy - Family History Family History: States: Unknown Family Hx - Immunization History Hx Tetanus Toxoid Vaccination: No Hx Influenza Vaccination: No Hx Pneumococcal Vaccination: No - Home Medications Home Medications: Ambulatory Orders Medication Instructions Recorded ARIPiprazole [Abilify] 15 mg PO DAILY 30 Days #30 tab 04/22/17 Benztropine Mesylate 0.5 mg PO DAILY 09/17/18 Bupropion HCl [Bupropion Xl] 150 mg PO DAILY 09/17/18 Divalproex [Depakote DR(*BID*)] 500 mg PO HS 09/17/18 - Allergies Allergies/Adverse Reactions: Allergies Allergy/AdvReac Type Severity Reaction Status Date / Time gluten Allergy DIARRHEA Verified 12/10/18 16:17 Review of Systems Neurological: Negative for: Weakness, Numbness, Altered Mental Status, Headache, Dizziness Psych: Positive for: Anxiety, Depression, Suicidal ideation. Negative for: Psychosis - Laboratory Results Result Diagrams: 12/10/18 17:40 12/10/18 17:40 Lab Results: Total Bilirubin 0.7 mg/dl (0.2-1.3) 12/10/18 17:40 AST 25 U/L (17-59) 12/10/18 17:40 ALT 35 U/L (21-72) 12/10/18 17:40 Alkaline Phosphatase 83 U/L (38-126) 12/10/18 17:40 Total Protein 7.2 G/DL (6.3-8.2) 12/10/18 17:40 Albumin 4.2 g/dL (3.5-5.0) 12/10/18 17:40 Globulin 3.0 gm/dL (2.2-3.9) 12/10/18 17:40 Albumin/Globulin Ratio 1.4 (1.0-2.1) 12/10/18 17:40 Urine Color Yellow (YELLOW) 12/10/18 17:40 Urine Clarity Slighty-cloudy (Clear) 12/10/18 17:40 Urine pH 6.0 (5.0-8.0) 12/10/18 17:40 Ur Specific [place] 1.023 (1.003-1.030) 12/10/18 17:40 Urine Protein Negative mg/dL (NEGATIVE) 12/10/18 17:40 Urine Glucose (UA) Neg mg/dL (NEGATIVE) 12/10/18 17:40 Urine Ketones Negative mg/dL (NEGATIVE) 12/10/18 17:40 Urine Blood Negative (NEGATIVE) 12/10/18 17:40 Urine Nitrate Negative (NEGATIVE) 12/10/18 17:40 Urine Bilirubin Negative (NEGATIVE) 12/10/18 17:40 Urine Urobilinogen 0.2-1.0 mg/dL (0.2-1.0) 12/10/18 17:40 Ur Leukocyte Esterase Neg [place]/uL (Negative) 12/10/18 17:40 Urine RBC (Auto) 1 /hpf (0-3) 12/10/18 17:40 Urine Microscopic WBC 1 /hpf (0-5) 12/10/18 17:40 - ECG O2 Sat by Pulse Oximetry: 99 Medical Decision Making Medical Decision Making: Crisis evaluation 1:1 observation EKG CBC, CMP Portable Chest Urine drug screen U/A serum ETOH EKG: sinus with short OK, HR 59, no delta wave. CXR read by me: unremarkable Pt seen by tipple worker. Pt to be admitted for depression as per Dr. Culp. Pt is medically stable for psychiatric admission. Disposition - Clinical Impression Clinical Impression: Depression - Patient ED Disposition Is Patient to be Admitted: Yes Discussed With : Kinjal Culp - Disposition Disposition: Transfer of Care Disposition Time: 18:44 Condition: FAIR
[2018-12-10 20:33] VITALS: O2SAT 98
[2018-12-10] MEDS ORDERED: Alum-Mag Hydrox-Simethicone Susp (30 mL) PO PRN (20:52)
[2018-12-10] MEDS ORDERED: DiphenhydrAMINE 50 mg/ml Inj IM PRN (20:52)
[2018-12-10] MEDS ORDERED: Magnesium Hydroxide Susp 30 ml UD PO PRN (20:52)
--- NOTE | 2018-12-10 22:13 | PCM.BM ---
<Albino Ashby - Last Filed: 12/10/18 22:11> Treatment Plan Problems - Problems identified on initial assessmt Suicidal Ideation Date Initiated: 12/10/18 Time Initiated: 22:12 Assessment reference: NA Status: Active Altered Sleep Patterns Date Initiated: 12/10/18 Time Initiated: 22:12 Assessment reference: NA Status: Active Medication nonadherence Date Initiated: 12/10/18 Time Initiated: 22:13 Assessment reference: NA Status: Active Treatment assets and liabiliti Patient Assests: cooperative, motivated, self-reliant, ADL independent, physically healthy, negotiates basic needs, good past tx response, cognitively intact Patient Liabilities: financial problems, poor support system - Milieu Protocol Maintain good personal hygiene: daily Encourage regular showers, daily Remind patient to perform daily oral care, daily Assist patient to perform ADL's Conduct patient checks and document Observation sheet: Q15 minutes Maintain personal safety: every shift Educate patient to report safety concerns to staff, every shift Monitor environment for contraband/sharps Medication safety: Monitor for expected outcome, potential side effects: every shift, Assess barriers to learning: every shift, Assess readiness for medication education: every shift <Andrew De Souza - Last Filed: 12/11/18 16:12> Family Contact Family involvement: Family/SO is involved Family contact: Patient agrees to contact, Family has been contacted by patient Family contact name: Cassidy Archibald - Sister Family contacted how many times per week?: 2 - Goals for Treatment Patient goals for treatment: Pt would like to be restarted on his medications to better regulate his mood. He would also like these medications coordinated with his restless leg syndrome medications. Pt would like to be referred to [facility] for medication management and [facility] for outpatient therapy. Discharge/Continuing Care - Education Needs Education Needs: Patient Medication, Patient Diagnosis/Disease Process, Patient Coping Skills, Patient Aftercare Safety Plan - Discharge Discharge Criteria: Tolerates medication w/o severe side effects, Free of Suicidal thoughts, Free of paranoid thoughts, Free of agitation, Normal sleep pattern, Ability to care for self, Reduction of target symptoms Discharge to:: Home - Treatment Team Participation Patient/Family/SO Statement: 12/11/18 16:14 Pt seen in treatment team on 12/11/18 form [id number]. Pt reported he is depressed. Pt presented with labile mood and pressured, tangential speech. Pt appeared disheveled and dressed in street clothes. Pt reported he has been neglecting his ADL's for the past 2 months. Pt made intense eye contact. Pt's psychomotor movements were uncoordinated and slowed. Pt presents with good insight and impaired judgment. Pt reported he was referred to [facility] 7-8 months ago and graduated from their program with honors. Pt reported he was afraid to leave the program due to likelihood of relapse. Pt reported he continued to attend [facility] for groups and med management but missed 2 appointments and his case was closed. Pt has been without medications for several months and has been unable to obtain them. Pt went to [facility] for an intake on 12/10 and was told that they did not have a psychiatrist at this time and are unable to give him medication. This was the precipitant for pt's suicidal thoughts as he was completely devastated that no one could provide him medications. Pt will be restarted on Wellbutrin, Abilify and Depakote and Gabapentin to treat both Bipolar D/O and Restless Leg Syndrome. Pt reported his [employer] worker is [employer]. Pt denied current SI/HI and AVT hallucinations. Pt is oriented X4. Discussed with Family/SO: No Was Patient/Family/SO present at Treatment Team Meeting: Yes <Kinjal Culp - Last Filed: 12/14/18 14:08> - Diagnosis (1) Depression Status: Chronic Interventions: 12/14/18 14:08 psychotherapy, pharmacotherapy
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
[2018-12-11] MEDS ORDERED: buPROPion SR 150 MG TABLET PO STA (12:16)
--- NOTE | 2018-12-11 12:39 | CARD ---
APPROVED REPORT Date of service: 12/10/2018 EKG Measurement Heart [id number] <Conclusion> Sinus bradycardia Otherwise normal ECG
--- NOTE | 2018-12-11 12:40 | PCM.PSYCH ---
Initial Psychiatric Evaluation - Initial Psychiatric Evaluation Type of Admission: Voluntary Legal Status: Capacity Chief Complaint (in patient's own words): I was feeling hopeless History of Present Illness and Precipitating Events: pt is 58 ys old male with previous diagnosis of bipolar disorder presented to ER due to having suicidal ideation with plan to overdose on pills or to use a knife pt has been increasingly depressed as he was recently diagnosed with restless leg syndrome , since then unable to sleep, feeling increasingly distressed, low energy, feeling helpless, pt also was unable to get appointment with outpatient psychiatrist so was unable to get his medications on the unit pt reports feeling distressed and depressed because of his recent medical diagnossi, reported poor sleep, poor appetite feeling helpless, cont inues to report passive suicidal ideation without active plan on the unit denied perceptual disturbances, denied homicidal ideation Current Medications: Active Medications Generic Name Dose Route Start Last Admin Trade Name Freq PRN Reason Stop Dose Admin Acetaminophen 650 mg 12/10/18 20:52 Tylenol 325mg Tab PO Q4 PRN pain 4-7 Al Hydrox/Mg Hydrox/Simethicone 30 ml 12/10/18 20:52 Maalox Plus 30 Ml PO Q4 PRN Dyspepsia Aripiprazole 10 mg 12/11/18 09:00 12/11/18 10:07 Abilify PO 10 mg DAILY ERIK Administration Bupropion HCl 150 mg 12/12/18 09:00 Wellbutrin Sr 150 Mg PO DAILY ERIK Diphenhydramine HCl 50 mg 12/10/18 20:52 Benadryl IM Q6 PRN Extrapyramidal S/S Unable PO Diphenhydramine HCl 50 mg 12/10/18 20:52 Benadryl PO Q6 PRN Extrapyramidal Symptoms Diphenhydramine HCl 50 mg 12/10/18 20:52 Benadryl PO HS PRN Sleep Divalproex Sodium 500 mg 12/11/18 22:00 Depakote Er(Once Daily) PO HS ERIK Haloperidol 5 mg 12/10/18 20:52 Haldol PO Q4 PRN Agitation Haloperidol Lactate 5 mg 12/10/18 20:52 Haldol IM Q4 PRN Agitation, Unable to Take PO Lorazepam 2 mg 12/10/18 20:52 Ativan IM Q6 PRN Anxiety/Agitation,Unable PO Lorazepam 1 mg 12/10/18 20:52 Ativan PO Q8 PRN Anxiety/Agitation Magnesium Hydroxide 30 ml 12/10/18 20:52 Milk Of Magnesia PO HS PRN Constipation Trazodone HCl 100 mg 12/10/18 21:00 12/11/18 01:27 Desyrel PO 100 mg HS PRN Administration Insomnia Past Psychiatric History - Past Psychiatric History Explanation of prior treatment: multiple inpatient hospitalizations due to suicidal ideation History of ETOH/Drug Use: history of cocaine use in early remission Pertinent Medical Hx (Current Medical&Sleep Prob, Allergies): Allergies Allergy/AdvReac Type Severity Reaction Status Date / Time gluten Allergy DIARRHEA Verified 12/10/18 16:17 ARIPiprazole [Abilify] 15 mg PO DAILY 30 Days #30 tab 04/22/17 Benztropine Mesylate 0.5 mg PO DAILY 09/17/18 Bupropion HCl [Bupropion Xl] 150 mg PO DAILY 09/17/18 Divalproex [Depakote DR(*BID*)] 500 mg PO HS 09/17/18 Mental Status Examination - Personal Presentation Personal Presentation: Looks older than stated age - Affect Affect: Constricted, Depressed - Motor Activity Motor Activity: Calm - Reliability in Providing Information Reliability in Providing Information: Fair - Speech Speech: Relevant - Mood Mood: Depressed, Anxious - Formal Thought Process Formal Thought Process: Circumstantial - Obsessions/Compulsions Obsessions: No Compulsions: No - Cognitive Functions Orientation: Person, Place Sensorium: Alert Judgement: Intact, as evidence by: Good judgement, Intact, as evidence by: Insight regarding need for hospitalization Memory: Recent intact, as evidence by: Ability to recall events of the day - Risk Risk: Suicidal, Diminished functioning - Strength & Assets Inventory Strength & Assets Inventory: Life experience - Limitations Limitations: Living alone DSM 5 DX - DSM 5 DSM 5 Diagnosis: bipolar I disorder MRE depressed severe without psychotic features - Recommended/Plan of Treatment Treatment Recommendations and Plan of Treatment: start abilify 10mg daily increase gradually start wellbutrin [id number] daily depakote 500mg qhs mirapex 0.125 mg qhs internal medicine consult review FE level cbt group and supportive therapy
--- NOTE | 2018-12-11 15:18 | RAD ---
Date of service: 12/10/2018 HISTORY: shortness of breath, cough COMPARISON: 04/17/2017. FINDINGS: LUNGS: No active pulmonary disease. Incidental calcified granulomas left upper lobe. PLEURA: No significant pleural effusion identified, no pneumothorax apparent. CARDIOVASCULAR: No atherosclerotic calcification present Normal. OSSEOUS STRUCTURES: No significant abnormalities. VISUALIZED UPPER ABDOMEN: Normal. OTHER FINDINGS: None. IMPRESSION: No active disease. No significant interval change compared to the prior examination(s). Concordant results with the preliminary interpretation rendered by the emergency department physician procedure.
[2018-12-11] MEDS: Divalproex 500 mg ER (ONCE DAILY formulation) PO SCH (21:08)
[2018-12-12] MEDS: buPROPion SR 150 MG TABLET PO SCH (09:03)
--- NOTE | 2018-12-12 13:47 | PCM.PYCHPN ---
Mental Status Examination - Cognitive Function Orientation: Person, Place - Mood Mood: Depressed, Anxious - Affect Affect: Constricted, Depressed - Formal Thought Process Formal Thought Process: Circumstantial - Homicidal Ideation Homicidal Ideation: No
[2018-12-12] MEDS: Divalproex 500 mg ER (ONCE DAILY formulation) PO SCH (21:12)
[2018-12-13] MEDS: buPROPion SR 150 MG TABLET PO SCH (09:24)
--- NOTE | 2018-12-13 19:55 | PCM.PYCHPN ---
Psychiatric Progress Note - Psychiatric Progress Note Patient seen today, length of contact: chart reviewed case discussed with team Patient Chief Complaint: reports had stopped rx, became overwhelmed, relapse, reports has started rx, feels more in control, less anxious, reports would like to continue treatment upon discharge denies side effects rx, admits that knows needs to keep self occupied might consider volunteering. admits at night s/s restless leg is keeping him up at times at night, request information related to rx he is taking or was taking when home mirapex and requip (currently receiving mirapex). seen about unit adherent with rx. Problems Identified/Issues Discussed: alteration in mood alteration neuromuscular function (restless leg) hx of non adherence Medical Problems: per chart Diagnostic Results: per psychiatry per medicine per nursing per social work per recreational therapy DSM 5 Symptoms Update: improvement in mood, some improvement sleep-s/s of restless leg syndrome Medication Change: No Medical Record Reviewed: Yes Consults ordered or reviewed: case discussed with pharmacy [facility] [phone], reports that mirapex/requip may induce abilify and or haldol (decreased effective ness) separately and possibly increased/synergistic should mirapex and requip (pt is currently receiving mirapex) Mental Status Examination - Cognitive Function Orientation: Person, Place, Situation, Time Memory: Intact Attention: WNL Concentration: WNL Association: WNL Fund of Knowledge: WN Decription of patient's judgement and insights: impaired - Mood Mood: Depressed, Anxious Additional comments: reported improvement - Affect Affect: Constricted, Depressed - Formal Thought Process Formal Thought Process: Circumstantial - Suicidal Ideation Suicidal Ideation: No - Homicidal Ideation Homicidal Ideation: No Goal/Treatment Plan - Goal/Treatment Plan Progress Toward Problem(s) and Goals/Treatment Plan: inpt milieu adjust meds per clinical status case discussed with pharmacy related to rx"meds for restless leg syndrome" and abilify/haldol possible induction (decreased benefit of antipsychotic/mood stabilizer). vital signs and clinical observation per protocol/clinical status discharge planning in process Estimated Date of D/C: 12/16/18 - Smoking Cessation Smoking Cessation Initiated: No Reason for not providing: pt defers
[2018-12-13] MEDS: Divalproex 500 mg ER (ONCE DAILY formulation) PO SCH (21:22)
[2018-12-14] MEDS: buPROPion SR 150 MG TABLET PO SCH (08:37)
--- NOTE | 2018-12-14 15:16 | PCM.PYCHPN ---
Psychiatric Progress Note - Psychiatric Progress Note Patient seen today, length of contact: chart reviewed case discussed with team Patient Chief Complaint: I feel better with my medicine Problems Identified/Issues Discussed: pt evaluated, reported improved mood, brighter affect, no reported side effects of medications, improved sleep and appetite, attending groups, denied any current suicidal or homicidal ideation denied perceptual disturbances Medical Problems: multiple inpatient hospitalizations due to suicidal ideation DSM 5 Symptoms Update: bipolar disorder MRE depressed Medication Change: No Medical Record Reviewed: Yes Mental Status Examination - Cognitive Function Orientation: Person, Place, Situation, Time Memory: Intact Attention: WNL Concentration: WNL Association: WNL Fund of Knowledge: WNL - Mood Mood: Depressed, Anxious - Affect Affect: Constricted, Depressed - Formal Thought Process Formal Thought Process: Circumstantial - Suicidal Ideation Suicidal Ideation: No - Homicidal Ideation Homicidal Ideation: No Goal/Treatment Plan - Goal/Treatment Plan Need for Continued Stay: Severe depression anxiety, Discharge may exacerbated symptoms Progress Toward Problem(s) and Goals/Treatment Plan: abilify 10mg daily increase gradually wellbutrin [id number] daily depakote 500mg qhs mirapex 0.125 mg qhs cbt group and supportive therapy Estimated Date of D/C: 12/16/18
[2018-12-14] MEDS: Divalproex 500 mg ER (ONCE DAILY formulation) PO SCH (21:01)
[2018-12-15 09:08] VITALS: BP 124/82; PULSE 60; RESP 16; TEMP 97.4
[2018-12-15] MEDS: buPROPion SR 150 MG TABLET PO SCH (09:14)
--- NOTE | 2018-12-15 14:30 | PCM.PYCHDC ---
Mental Status Examination - Mental Status Examination Orientation: Person, Place, Situation Memory: Intact Mood: Neutral Affect: Broad Speech: Appropriate Attention: WNL Concentration: WNL Association: WNL Fund of Knowledge: WNL Formal Thought Process: No Impairment Description of patient's judgement and insight: fair insight and judgment Psychotic Thoughts and Behaviors: pt denied perceptual disturbances non elicited Suicidal Ideation: No Current Homicidal Ideation?: No Discharge Summary - Discharge Note Reason for Hospitalization: pt is 58 ys old male with previous diagnosis of bipolar disorder presented to ER due to having suicidal ideation with plan to overdose on pills or to use a knife pt has been increasingly depressed as he was recently diagnosed with restless leg syndrome , since then unable to sleep, feeling increasingly distressed, low energy, feeling helpless, pt also was unable to get appointment with outpatient psychiatrist so was unable to get his medications on the unit pt reports feeling distressed and depressed because of his recent medical diagnosis, reported poor sleep, poor appetite feeling helpless, continues to report passive suicidal ideation without active plan on the unit denied perceptual disturbances, denied homicidal ideation Consultations:: List each consultation separately and include: 1. Reason for request. 2. Findings. 3. Follow-up Summary of Hospital Course include:: 1. Description of specific treatment plan utilized for patients during their course of treatmen. 2. Summarize the time- course for resolution of acute symptoms and/or regressed behaviors. 3. Describe issues identified and worked on during hospitalization. 4. Describe medication utilized. 5. Describe medical problems identified and treated. 6. Reassessment of suicide risk Summary of Hospital Course: pt on admission presented with depressed mood and affect, pt was re started on his medications including abilify, depakote and wellbutrin, CBT group and supportive therapy provided, pt was compliant with treatment attended groups, no reported side effects of medications internal medicine consult and FE level checked for RLS on discharge mental status was stable , pt denied any current suicidal or homici anjali ideation denied perceptual disturbances - Diagnosis (1) Depression Current Visit: Yes Status: Chronic - Final Diagnosis (DSM 5) Condition upon Discharge: STABLE DSM 5: bipolar I disorder MRE depressed severe Disposition: HOME/ ROUTINE Follow-up Treatment Plan: [facility] Prescriptions/Medication Reconciliation: ARIPiprazole [Abilify] 10 mg PO DAILY 30 Days #30 tab buPROPion SR [Wellbutrin SR 150 MG] 150 mg PO DAILY 30 Days #30 tab Divalproex [Depakote ER(ONCE DAILY)] 500 mg PO HS 30 Days #30 ter Gabapentin [Neurontin] 100 mg PO TID 30 Days #90 cap traZODone [Desyrel] 100 mg PO HS PRN 30 Days #30 tab PRN Reason: Insomnia - Antipsychotic Medications Pt discharged on 2 or more routine antipsychotic medications: No
== END 2018-12-15 15:17 | disposition home or self-care (01) | DRG 885 ==
LOC: H.ER 16:13 → H.ERHOLD 18:44 → H.PSYCH 20:49
PROVIDERS: ADMIT Psychiatry & Neurology Psychiatry; ATTEND Psychiatry & Neurology Psychiatry
PROC: GZHZZZZ Group Psychotherapy (ICD-10-PCS; principal; 2018-12-10)
PROC: GZ58ZZZ Individual Psychotherapy, Cognitive-Behavioral (ICD-10-PCS; 2018-12-10)
PROC: GZ56ZZZ Individual Psychotherapy, Supportive (ICD-10-PCS; 2018-12-10)
DX: F31.4 Bipolar disorder, current episode depressed, severe, without psychotic features (principal); R45.851 Suicidal ideations; G25.81 Restless legs syndrome; K90.0 Celiac disease; Z87.891 Personal history of nicotine dependence